=== PATIENT | female | born 1935 | race Caucasian/White ===

== ENCOUNTER → 2016-04-09 | Outpatient (CLI) | payer MEDICARE, OTHER | END | disposition home or self-care (01) | LOC: GMA 14:57 | PROVIDERS: ATTEND Nurse Practitioner Family | DX: N39.0 Urinary tract infection, site not specified (principal) ==

== ENCOUNTER → 2016-04-23 | Outpatient (CLI) | payer MEDICARE, OTHER | END | disposition home or self-care (01) | LOC: GMAM 10:47 | PROVIDERS: ATTEND Family Medicine | DX: M85.89 Other specified disorders of bone density and structure, multiple sites (principal); E03.9 Hypothyroidism, unspecified; E55.9 Vitamin D deficiency, unspecified; I10 Essential (primary) hypertension; E78.2 Mixed hyperlipidemia ==

== ENCOUNTER 2016-04-26 16:41 | Emergency (ER) | payer MEDICARE, OTHER ==
--- NOTE | 2016-04-26 19:57 | ED.PDOC ---
History of Present Illness - General Chief Complaint: Skin/Abrasion/Tear Stated Complaint: rash Time Seen by Provider: 04/26/16 19:53 Source: patient Exam Limitations: no limitations - History of Present Illness Initial Comments: Ms. Amrik Sewell 80 y/o female with histtory of dm 2 and OA stated that he had pneumonia immunization 4 days ago and after 2 days had pruritic rash right side of face and also skin rash non itching right side cheek.No nose or eye pain. Timing/Duration: other - 2 days ago Severity: moderate Location: face, extremities Improving Factors: nothing Worsening Factors: nothing Associated Symptoms: itching Allergies/Adverse Reactions: Allergies Codeine Allergy (Verified 04/26/16 18:40) Home Medications: Ambulatory Orders predniSONE [Prednisone] 10 mg PO DAILY #7 tab 04/26/16 Review of Systems - Review of Systems Constitutional: States: no symptoms reported EENTM: States: no symptoms reported Respiratory: States: no symptoms reported Cardiology: States: no symptoms reported Gastrointestinal/Abdominal: States: no symptoms reported Genitourinary: States: no symptoms reported Musculoskeletal: States: no symptoms reported Skin: States: see HPI Neurological: States: no symptoms reported Endocrine: States: no symptoms reported Hematologic/Lymphatic: States: no symptoms reported Past Medical History (General) - Patient Medical History Hx of COPD: Yes Hx Hypertension: Yes Surgical History: other - hysterectomy - Vaccination History Hx Influenza Vaccination: Yes Hx Pneumococcal Vaccination: Yes Immunizations Up to Date: Yes - zoster - Social History Hx Tobacco Use: Yes - Activities of Daily Living Patient Lives Alone: Yes - recently Grooming Ability: Independent Eating (Feeding) Ability: Independent Toileting Ability: Independent Family Medical History - Family History Mother Family History: Unknown Living Status: Hx Family Diabetes: Yes - parents Hx Family Cancer: Yes - AML-son Physical Exam - Physical Exam General Appearance: Alert, No apparent distress Eyes, Ears, Nose, Throat Exam: PERRL/EOMI, normal ENT inspection, TMs normal, other - Fluorescein dye uptake negative right eye Neck: non-tender, full range of motion, supple Cardiovascular/Chest: normal peripheral pulses, regular rate, rhythm, no edema, no gallop, no JVD, no murmur Respiratory: chest non-tender, lungs clear, normal breath sounds Gastrointestinal/Abdominal: normal bowel sounds, non tender, soft, no pulsatile mass Extremity: normal range of motion, non-tender, normal inspection Neurologic: no motor/sensory deficits, alert Skin Exam: warm/dry, normal color Skin Problem Location: face, lower extremities Skin Character: macules, other - with central clearing Lymphatic: no adenopathy Departure - Departure Clinical Impression: Skin rash, Blepharitis of eyelid of right eye Time of Disposition: 20:03 Disposition: Discharge to Home or Self Care Condition: Good Departure Forms: ED Discharge - Pt. Copy, Patient Portal Self Enrollment Prescriptions: predniSONE [Prednisone] 10 mg PO DAILY #7 tab Home Medications: Ambulatory Orders predniSONE [Prednisone] 10 mg PO DAILY #7 tab 04/26/16 Additional Instructions: FOLLOW UP WITH PRIMARY MD call for appointment KAMRYN;Take Benadryl 25 mg by mouth 3x a day for itching
[2016-04-26] MEDS ORDERED: DEXAMETHASONE INJ 4 MG/ML VIAL IM ONE (20:02)
[2016-04-26 20:25] VITALS: BP 172/87
[2016-04-26 20:27] VITALS: TEMP 97.2; O2SAT 99
== END 2016-04-26 20:27 | disposition home or self-care (01) ==
LOC: ER 16:41
DX: R21 Rash and other nonspecific skin eruption (principal); H01.003 Unspecified blepharitis right eye, unspecified eyelid; E11.9 Type 2 diabetes mellitus without complications; M19.90 Unspecified osteoarthritis, unspecified site; J44.9 Chronic obstructive pulmonary disease, unspecified; I10 Essential (primary) hypertension; Z88.6 Allergy status to analgesic agent

== ENCOUNTER 2016-05-20 22:58 | Emergency (ER) | payer MEDICARE, OTHER ==
[2016-05-20] MEDS ORDERED: SODIUM CHLORIDE 0.9% 1000ML 1,000 ML IVS ONE (23:20)
--- NOTE | 2016-05-20 23:24 | ED.PDOC ---
History of Present Illness - General Chief Complaint: Fever Stated Complaint: fever, cough, slurred speech, unsteady gait,alt MS Time Seen by Provider: 05/20/16 23:07 Source: patient, RN notes reviewed, Vital Signs reviewed, family Exam Limitations: no limitations - History of Present Illness Initial Comments: Patient and daughter report that at ~10pm patient started to get confused, had slurred speech and her walking was off balance. Daughter reports she was on the phone and just started talking about things that did not make since. She was talking like her was still alive and he passed several months ago. She has not been feeling well for a couple of days with a low fever at home. No similar episodes in past. No CARTER, lightheadedness, dizziness. Patient reports that now she is feeling pretty good. Daughter still feels like her walking is off. Timing/Duration: 1-3 hours Severity: mild Improving Factors: nothing Worsening Factors: nothing Associated Symptoms: fever/chills, malaise, weakness Allergies/Adverse Reactions: Allergies Codeine Allergy (Verified 05/20/16 23:15) Home Medications: Ambulatory Orders Aspirin [Aspirin EC Low Dose] 81 mg PO DAILY 05/20/16 Calcium 600 mg PO DAILY 05/20/16 Carvedilol [Coreg] 12.5 mg PO BID 05/20/16 Cholecalciferol [Vitamin D3] 5,000 unit PO WKLY 05/20/16 Citalopram Hydrobromide [CeleXA] 20 mg PO DAILY 05/20/16 Coenzyme Q10 (Ubidecarenone) [Co Q-10] 100 mg PO DAILY 05/20/16 Gabapentin [Neurontin] 100 mg PO DAILY 05/20/16 Levothyroxine Sodium [Synthroid] 112 mcg PO DAILY 05/20/16 Metformin HCl [Metformin HCl ER] 1,000 mg PO BEDTIME 05/20/16 Metformin HCl [Metformin HCl ER] 500 mg PO ACHS 05/20/16 Nifedipine [Procardia Xl] 60 mg PO DAILY 05/20/16 Omeprazole Magnesium 20.6 mg PO DAILY 05/20/16 Nitrofurantoin Monohydrate Mac [Macrobid] 100 mg PO BID #20 cap 05/21/16 Review of Systems - Review of Systems Constitutional: States: fever, malaise, weakness. Denies: diaphoresis EENTM: States: no symptoms reported Respiratory: States: no symptoms reported. Denies: short of breath Cardiology: States: no symptoms reported. Denies: chest pain Gastrointestinal/Abdominal: States: no symptoms reported. Denies: nausea, vomiting Musculoskeletal: States: no symptoms reported Skin: States: no symptoms reported Neurological: States: see HPI, weakness, other - slurred speech, altered mental status Past Medical History (General) - Patient Medical History Hx Seizures: No Hx Stroke: No Hx Dementia: No Hx Asthma: No Hx of COPD: Yes Hx Cardiac Disorders: No Hx Congestive Heart Failure: No Hx Pacemaker: No Hx Hypertension: Yes Hx Thyroid Disease: Yes Hx Diabetes: Yes Hx Gastroesophageal Reflux: No Hx Renal Disease: No Hx Cancer: No Hx of HIV: No Hx Hepatitis C: No Hx MRSA: No Surgical History: tonsillectomy, Hysterectomy, other - Vaccination History Hx Tetanus, Diphtheria Vaccination: Yes Hx Influenza Vaccination: Yes Hx Pneumococcal Vaccination: Yes Immunizations Up to Date: Yes - Social History Hx Tobacco Use: No Hx Chewing Tobacco Use: No Hx Alcohol Use: No Hx Substance Use: No Hx Substance Use Treatment: No Hx Depression: No Feels Threatened In Home Enviroment: No Feels Threatened In a Relationship: No Hx Physical Abuse: No Hx Emotional Abuse: No Hx Suspected Abuse: No Family Medical History - Family History Mother Family History: Unknown Living Status: Hx Family Diabetes: Yes - parents Hx Family Cancer: Yes - AML-son Physical Exam - Physical Exam General Appearance: Alert, Comfortable, No apparent distress, Well Developed, Well Groomed, Well Hydrated, Well Nourished Eye Exam: bilateral normal Ears, Nose, Throat: hearing grossly normal, normal ENT inspection, normal pharynx Neck: non-tender, full range of motion, supple, normal inspection Respiratory: chest non-tender, lungs clear, normal breath sounds, no respiratory distress, no accessory muscle use Cardiovascular/Chest: normal peripheral pulses, regular rate, rhythm, no edema, no gallop, no JVD, no murmur Peripheral Pulses: dorsalis pedis,right: 2+, dorsalis pedis,left: 2+, posterior tibialis,right: 2+, posterior tibialis,left: 2+ Gastrointestinal/Abdominal: normal bowel sounds, non tender, soft, no organomegaly, no pulsatile mass Extremity: normal range of motion, non-tender, normal inspection, no pedal edema 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 Will treat UTI Follow up with Neurology - Results/Orders Results/Orders: Laboratory Tests 05/20/16 05/20/16 23:35 23:50 WBC 6.8 RBC 4.52 Hgb 12.4 Hct 37.4 MCV 82.6 MCH 27.4 MCHC 33.2 RDW 14.9 H Plt Count 125 L MPV 7.1 L Absolute Neuts (auto) 4.60 Absolute Lymphs (auto) 1.10 Absolute Monos (auto) 0.80 Absolute Eos (auto) 0.10 Absolute Basos (auto) 0.10 Neutrophils % 68.5 Lymphocytes % 16.9 L Monocytes % 12.6 H Eosinophils % 1.1 Basophils % 0.9 Sodium 135 Potassium 3.9 Chloride 101 Carbon Dioxide 30 Anion Gap 7.9 L BUN 11 Creatinine 0.74 BUN/Creatinine Ratio 14.9 Random Glucose 114 H Serum Osmolality 270.4 L Calcium 9.2 Total Bilirubin 0.8 AST 19 ALT 12 Alkaline Phosphatase 49 Serum Total Protein 7.4 Albumin 3.8 Globulin 3.6 H Albumin/Globulin Ratio 1.1 Urine Color Yellow Urine Appearance Clear Urine pH 6.0 Ur Specific [place] 1.010 Urine Protein Negative Urine Glucose (UA) Negative Urine Ketones Negative Urine Blood Trace-intact H Urine Nitrite Negative Urine Bilirubin Negative Urine Urobilinogen 0.2 Ur Leukocyte Esterase Small H Urine RBC 0-1 Urine WBC 3-5 H Ur Epithelial Cells 0-1 Urine Bacteria 1+ - EKG/XRAY/CT CT Ordered: Yes CT Interpretation Call Back: Yes - No Occlusion, 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 aneurysm. 60% occlusion R. 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 Copy, Patient Portal Self Enrollment Instructions: DI for Urinary Tract Infection (UTI), Brain Aneurysm Diet: resume usual diet Activity: increase activity as tolerated Referrals: Timur Aguilar MD [Primary Care Provider] - 1-2 Weeks (Needs follow up for 4mm prox. 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) Prescriptions: Nitrofurantoin Monohydrate Mac [Macrobid] 100 mg PO BID #20 cap Home Medications: Ambulatory Orders Aspirin [Aspirin EC Low Dose] 81 mg PO DAILY 05/20/16 Calcium 600 mg PO DAILY 05/20/16 Carvedilol [Coreg] 12.5 mg PO BID 05/20/16 Cholecalciferol [Vitamin D3] 5,000 unit PO WKLY 05/20/16 Citalopram Hydrobromide [CeleXA] 20 mg PO DAILY 05/20/16 Coenzyme Q10 (Ubidecarenone) [Co Q-10] 100 mg PO DAILY 05/20/16 Gabapentin [Neurontin] 100 mg PO DAILY 05/20/16 Levothyroxine Sodium [Synthroid] 112 mcg PO DAILY 05/20/16 Metformin HCl [Metformin HCl ER] 1,000 mg PO BEDTIME 05/20/16 Metformin HCl [Metformin HCl ER] 500 mg PO ACHS 05/20/16 Nifedipine [Procardia Xl] 60 mg PO DAILY 05/20/16 Omeprazole Magnesium 20.6 mg PO DAILY 05/20/16 Nitrofurantoin Monohydrate Mac [Macrobid] 100 mg PO BID #20 cap 05/21/16
--- NOTE | 2016-05-21 01:03 | CT ---
PROCEDURE: CTA Head CLINICAL HISTORY: 80 years Female Slurred speech lower ext weakness COMPARISON: None. TECHNIQUE: Contiguous axial images obtained through the head and neck during the infusion of IV contrast. Reformatted images obtained. 3-D MIP reformatted images obtained. This exam was performed according to our department optimization program which includes automated exposure control, adjustment of the mA and/or kv according to patient size and/or use of iterative reconstruction technique. FINDINGS: The study is slightly limited by motion and streak artifact. The ventricles and sulci appear unremarkable. No definite areas of decreased density are identified. No definite acute hemorrhage. No mass lesions or enhancing lesions Mild mucosal thickening within bilateral inferior mastoid air cells. Marked atherosclerotic calcification in the right vertebral artery adjacent to the C1 level which slightly limits evaluation. The degree of stenosis is estimated at 60% using NASCET criteria. The distal left vertebral artery appears widely patent. Atherosclerotic calcifications within the cavernous portions of the bilateral internal carotid arteries without definite hemodynamically significant stenosis. Small left posterior communicating artery is visualized. The right A1 segment is markedly hypoplastic. No definite intracranial large vessel occlusion is visualized. There is an aneurysm arising from the proximal basilar artery which projects towards the right. The aneurysm measures approximately 0.4 cm in length by approximately 0.3 cm in width. 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 0.4 cm aneurysm arising from the proximal basilar artery. The findings were called to Dr. Case at approximately 12:59 AM. Electronically signed by: Eleuterio Solano MD 05/21/2016 1:01 AM CDT
[2016-05-21] MEDS ORDERED: NITROFURANTOIN MONOHYDRATE MAC 100 MG CAP PO ONE (01:04)
[2016-05-21 01:28] VITALS: BP 136/73
[2016-05-21 01:29] VITALS: TEMP 97.9; O2SAT 92
== END 2016-05-21 01:29 | disposition home or self-care (01) ==
LOC: ER 22:58
DX: N30.01 Acute cystitis with hematuria (principal); I72.5 Aneurysm of other precerebral arteries; J44.9 Chronic obstructive pulmonary disease, unspecified; I10 Essential (primary) hypertension; E07.9 Disorder of thyroid, unspecified; E11.9 Type 2 diabetes mellitus without complications; Z88.6 Allergy status to analgesic agent; Z79.899 Other long term (current) drug therapy; Z79.82 Long term (current) use of aspirin
CPT/HCPCS: 70496; 80053; 81001; 85025; 87086; 87088; 87186; J7030

== ENCOUNTER → 2016-05-26 | Outpatient (CLI) | payer MEDICARE, OTHER | END | disposition home or self-care (01) | LOC: GMAM 16:43 | PROVIDERS: ATTEND Family Medicine | DX: N39.0 Urinary tract infection, site not specified (principal) ==

== ENCOUNTER → 2016-07-08 | Outpatient (CLI) | payer MEDICARE, OTHER | END | disposition home or self-care (01) | LOC: GMAM 14:39 | PROVIDERS: ATTEND Family Medicine | DX: E55.9 Vitamin D deficiency, unspecified (principal) ==

== ENCOUNTER → 2016-10-07 | Outpatient (CLI) | payer MEDICARE, OTHER | END | disposition home or self-care (01) | LOC: GMAM 10:38 | PROVIDERS: ATTEND Family Medicine | DX: E03.9 Hypothyroidism, unspecified (principal); E55.9 Vitamin D deficiency, unspecified; D64.9 Anemia, unspecified; E53.8 Deficiency of other specified B group vitamins; R30.0 Dysuria ==

== ENCOUNTER → 2017-01-27 | Outpatient (CLI) | payer MEDICARE, OTHER | END | disposition home or self-care (01) | LOC: GMAM 11:16 | PROVIDERS: ATTEND Family Medicine | DX: E03.9 Hypothyroidism, unspecified (principal); E55.9 Vitamin D deficiency, unspecified; E53.8 Deficiency of other specified B group vitamins ==

== ENCOUNTER → 2017-05-11 | Outpatient (CLI) | payer MEDICARE, OTHER | LOC: GMAM 10:41 | PROVIDERS: ATTEND Family Medicine | DX: E03.9 Hypothyroidism, unspecified (principal); E55.9 Vitamin D deficiency, unspecified ==

== ENCOUNTER 2017-11-17 04:46 | Day surgery (SDC) | payer MEDICARE, OTHER ==
[2017-11-17] MEDS ORDERED: LACTATED RINGERS 1,000 ML ONE (06:50)
[2017-11-17] MEDS ORDERED: LACTATED RINGERS 1,000 ML BAG IV ONE (07:35)
[2017-11-17] MEDS ORDERED: PROPOFOL 200 MG/20 ML VIAL IV ONE (10:00)
[2017-11-17] MEDS ORDERED: LIDOCAINE 1% 10 ML VIAL INJ ONE (10:00)
--- NOTE | 2017-11-17 10:53 | OP ---
DATE OF PROCEDURE: 11/17/17 PREOPERATIVE DIAGNOSIS: 1. Iron deficiency anemia. 2. Dysphagia. 3. Abdominal pain. 4. Diarrhea. POSTOPERATIVE DIAGNOSIS: 1. Gastritis. 2. No esophageal stricture or other source of dysphagia seen. 3. Biopsies obtained for celiac sprue. 4. Miller diverticulosis. 5. Internal hemorrhoids. 6. Colonic polyps. PROCEDURE: 1. Esophagogastroduodenoscopy plus biopsy. 2. Colonoscopy plus biopsy plus polypectomy. SURGEON: Ash Alonso MD. COMPLICATIONS: None apparent. BLOOD LOSS: None. MEDICATIONS: Monitored anesthesia care. DESCRIPTION OF PROCEDURE: Informed consent was obtained prior to sedation. The preprocedure cardiopulmonary assessment was satisfactory. The patient was placed in the left lateral decubitus position and was sedated. The tip of the Olympus esophagogastroduodenoscope was inserted in the oropharynx and carefully advanced through the cricopharyngeus into the esophageal lumen. The esophagus was unremarkable. The patient complained of dysphagia, but there is no stricture or narrowing or other mechanical source of obstruction seen. The stomach was examined with direct and retroflexed views. The antrum, body, fundus, cardia and incisura were closely examined. The patient has some mild antral gastritis and biopsies were obtained. There were no ulcers in the stomach and no other significant mucosal pathology of the stomach. The duodenum was examined down to the third portion. Because fo the patient's iron deficiency anemia and diarrhea symptoms, biopsies were obtained in the second portion of duodenum for celiac sprue. The scope was then removed from the patient. The patient was rotated 180 degrees. A digital rectal exam reveals no rectal masses. The tip of the colonoscope was inserted in the rectum and guided over to the cecum. The cecum was identified by locating the ileocecal valve and appendiceal orifice. The colon was tortuous and there was a lot of diverticula , primarily in the sigmoid. There was also decreased mobility of the colon. This created some difficulty getting the scope on over to the cecum. We did have to apply some hand pressure, but we were able to get the scope on over to the cecum. The cecum was identified by locating the ileocecal valve and the appendiceal orifice. Prep was overall fair. There was some semisolid debris scattered around that I tried to irrigate and suction away to allow for good visualization. Tiny polyps could have been overlooked, but I think we could rule out colon cancer with the patient's prep. The mucosa of the cecum, ascending colon, hepatic flexure, transverse colon, splenic flexure, descending colon and sigmoid colon was closely examined. Direct and retroflexed views of the rectum were obtained. The patient had 2 polyps. There was a 3 mm polyp in the descending colon that was removed with a cold snare and recovered. There was an 8 mm sessile polyp in the distal sigmoid that was removed with a hot snare and recovered. The patient had miller diverticulosis without any active diverticulitis noted. She had internal hemorrhoids on retroflexed view in the rectum. I did take biopsies throughout the colon of normal appearing mucosa to rule out microscopic colitis. RECOMMENDATIONS: Followup pathology via telephone in a week. She does not need any further colon cancer screening in the future since she is 82 now. #[id number] cc: Timur Aguilar MD MTDD
[2017-11-17 11:17] VITALS: BP 124/68; TEMP 97.2; O2SAT 96
== END 2017-11-17 11:10 | disposition home or self-care (01) ==
LOC: AMB 04:46
PROVIDERS: ATTEND Internal Medicine Gastroenterology
DX: D50.9 Iron deficiency anemia, unspecified (principal); D12.4 Benign neoplasm of descending colon; D12.5 Benign neoplasm of sigmoid colon; K57.30 Diverticulosis of large intestine without perforation or abscess without bleeding; K64.8 Other hemorrhoids; K29.50 Unspecified chronic gastritis without bleeding; K58.0 Irritable bowel syndrome with diarrhea; I10 Essential (primary) hypertension; E11.9 Type 2 diabetes mellitus without complications; J44.9 Chronic obstructive pulmonary disease, unspecified; Z86.010 Personal history of colon polyps; Z87.891 Personal history of nicotine dependence; Z88.5 Allergy status to narcotic agent; Z79.84 Long term (current) use of oral hypoglycemic drugs; Z79.82 Long term (current) use of aspirin; Z79.899 Other long term (current) drug therapy
CPT/HCPCS: 00813; 36416; 43239; 45380; 45385; 82948; 88305; 88341; 88342; J3490; J7120

== ENCOUNTER → 2017-12-29 | Outpatient (CLI) | payer MEDICARE, OTHER | LOC: GMAM 12:37 | PROVIDERS: ATTEND Family Medicine | DX: E53.8 Deficiency of other specified B group vitamins (principal); E03.9 Hypothyroidism, unspecified; E55.9 Vitamin D deficiency, unspecified; E78.2 Mixed hyperlipidemia; E11.9 Type 2 diabetes mellitus without complications ==

== ENCOUNTER 2018-01-09 12:02 | Inpatient (IN) | payer MEDICARE, OTHER ==
--- NOTE | 2018-01-09 12:48 | ED.PDOC ---
History of Present Illness - General Chief Complaint: Respiratory Problem Stated Complaint: Congestion Time Seen by Provider: 01/09/18 12:46 Source: patient, family Exam Limitations: no limitations - History of Present Illness Comments: HAS BEEN SICK SINCE WEDNESDAY WITH A RUNNY NOSE AND SOB. SHE HAS BEEN USING HOME OXYGEN MORE FREQUENTLY THAN NOT. DENIES ANY FEVER. Timing/Duration: other - HAS BEEN SICK SINCE WEDNESDAY Cough Quality/Degree: moderate Possible Cause: allergen exposure, illness exposure Improving Factors: nothing Worsening Factors: nothing Associated Symptoms: denies symptoms, chest pain/soreness, cough, nasal congestion Respiratory Risk Factors: pollen Allergies/Adverse Reactions: Allergies Sulfamethoxazole w/Trimethoprim [From Bactrim] Allergy (Verified 01/09/18 12:49) Unknown Codeine Adverse Reaction (Verified 01/09/18 12:17) Other Causes a feeling of "separation from her body" Home Medications: Ambulatory Orders Aspirin [Aspirin EC Low Dose] 81 mg PO DAILY 05/20/16 Carvedilol [Coreg] 12.5 mg PO BID 05/20/16 Citalopram Hydrobromide [CeleXA] 40 mg PO DAILY 05/20/16 Gabapentin [Neurontin] 100 mg PO BEDTIME 05/20/16 Levothyroxine Sodium [Synthroid] 112 mcg PO DAILY 05/20/16 Metformin HCl [Metformin HCl ER] 1,000 mg PO BEDTIME 05/20/16 Metformin HCl [Metformin HCl ER] 500 mg PO DAILY 05/20/16 Nifedipine [Procardia Xl] 60 mg PO DAILY 05/20/16 Omeprazole Magnesium 20 mg PO DAILY 05/20/16 Calcium Carbonate-Vitamin D [Calcium 500+D] 1 tab PO BID 11/12/17 Cephalexin 500 mg PO BEDTIME 11/12/17 Clonidine HCl 0.1 mg PO Q2H PRN 11/12/17 Furosemide [Lasix] 20 mg PO DAILY PRN 11/12/17 HYDROcodone 5MG/APAP 325MG [[place] 5/325] 1 tab PO Q6HRS PRN 11/12/17 Mirabegron [Myrbetriq] 25 mg PO BEDTIME 11/12/17 Phenazopyridine HCl & Cranberr [Azo Urinary Tract Health 95 & 250-30 mg] 1 tab PO BID 11/12/17 diphenhydrAMINE HCL [Benadryl] 25 mg PO BEDTIME PRN 11/12/17 Coenzyme Q10 (Ubidecarenone) [Co Q-10] 100 mg PO DAILY 01/09/18 Cyanocobalamin Inj [Vitamin B-12 Inj] 1 ml IM MONTHLY 01/09/18 Potassium Chloride [Micro-K] 8 meq PO DAILY PRN 01/09/18 Tramadol HCl 50 mg PO Q6H PRN 01/09/18 Umeclidinium-Vilanterol [Anoro Ellipta 62.5-25 Mcg/INH] 1 puff INH DAILY Review of Systems - Review of Systems Constitutional: States: malaise EENTM: States: nose congestion Respiratory: States: cough, short of breath Cardiology: States: no symptoms reported Gastrointestinal/Abdominal: States: no symptoms reported Genitourinary: States: no symptoms reported Musculoskeletal: States: no symptoms reported Skin: States: no symptoms reported Neurological: States: no symptoms reported Endocrine: States: no symptoms reported Hematologic/Lymphatic: States: no symptoms reported Past Medical History (General) - Patient Medical History Hx Seizures: No Hx Stroke: No Hx Dementia: No Hx Asthma: No Hx of COPD: Yes Hx Cardiac Disorders: No Hx Congestive Heart Failure: No Hx Pacemaker: No Hx Hypertension: Yes Hx Thyroid Disease: Yes Hx Diabetes: Yes Hx Gastroesophageal Reflux: Yes Hx Renal Disease: No Hx Cancer: No Hx of HIV: No Hx Hepatitis C: No Hx MRSA: No - Vaccination History Hx Tetanus, Diphtheria Vaccination: Yes Hx Influenza Vaccination: Yes - 2017 Hx Pneumococcal Vaccination: Yes - 2018 - Social History Hx Tobacco Use: Yes - Quit 2002 Hx Chewing Tobacco Use: No Hx Alcohol Use: No Hx Substance Use: No Hx Substance Use Treatment: No Hx Depression: No Hx Physical Abuse: No Hx Emotional Abuse: No Hx Suspected Abuse: No Family Medical History - Family History Mother Family History: Unknown Living Status: Hx Family Diabetes: Yes - parents Hx Family Cancer: Yes - AML-son Physical Exam - Physical Exam General Appearance: Alert, Well Developed, Well Hydrated Eye Exam: bilateral normal ENT Exam: normal ENT inspection, hearing grossly normal, nasal congestion, nasal drainage Neck: non-tender, full range of motion Respiratory: normal breath sounds, no accessory muscle use, rhonchi Cardiovascular/Chest: normal peripheral pulses, regular rate, rhythm, no edema, no gallop, no JVD, no murmur Gastrointestinal/Abdominal: normal bowel sounds, non tender, soft, no organomegaly Extremity: normal range of motion, non-tender, normal inspection Neurologic: no motor/sensory deficits, oriented x 3 Skin Exam: normal color Lymphatic: no adenopathy Progress - Progress Progress: 01/09/18 14:08 01/09/18 13:54 [email or web address] SODIUM [Rocephin] 1 gm Sodium Chl 0.9% 50Ml Min-Bag+ [NS 50ml MINI -BAG+] 50 ml IVPB ONCE 01/09/18 14:06 SVN/Updraft Therapy .ONCE 01/10/18 09:00 Updrafts Daily Laboratory Results WBC 4.2 K/mm3 (4.8-10.8) L 01/09/18 12:46 RBC 4.48 M/mm3 (4.20-5.40) 01/09/18 12:46 Hgb 11.8 gm/dL (12.0-16.0) L 01/09/18 12:46 Hct 37.2 % (36.0-47.0) 01/09/18 12:46 MCV 82.9 fl (81.0-99.0) 01/09/18 12:46 MCH 26.3 pg (27.0-31.0) L 01/09/18 12:46 MCHC 31.6 g/dL (33.0-37.0) L 01/09/18 12:46 RDW 20.6 % (11.5-14.5) H 01/09/18 12:46 Plt Count 165 K/mm3 (130-400) 01/09/18 12:46 MPV 6.9 fl (7.40-10.4) L 01/09/18 12:46 Absolute Neuts (auto) 2.70 K/uL (1.8-6.8) 01/09/18 12:46 Absolute Lymphs (auto) 0.80 K/uL (1.0-3.4) L 01/09/18 12:46 Absolute Monos (auto) 0.60 K/uL (0.2-0.8) 01/09/18 12:46 Absolute Eos (auto) 0.10 K/uL (0.0-0.4) 01/09/18 12:46 Absolute Basos (auto) 0.00 K/uL (0.0-0.1) 01/09/18 12:46 Neutrophils % 64.3 % (42.0-78.0) 01/09/18 12:46 Lymphocytes % 18.4 % (20.0-50.0) L 01/09/18 12:46 Monocytes % 13.9 % (2.0-9.0) H 01/09/18 12:46 Eosinophils % 2.6 % (1.0-5.0) 01/09/18 12:46 Basophils % 0.8 % (0.0-2.0) 01/09/18 12:46 pCO2 52 mmHg (32-45) H 01/09/18 12:47 pO2 66 mmHg (83-108) L 01/09/18 12:47 HCO3 29.4 mmol/L 01/09/18 12:47 ABG pH 7.370 (7.35-7.45) 01/09/18 12:47 ABG O2 Saturation 94.1 % (95.0-99.0) L 01/09/18 12:47 ABG Base Excess 3.9 mmol/L 01/09/18 12:47 ABG Deoxyhemoglobin 5.8 % (0.0-5.0) H 01/09/18 12:47 Oxyhemoglobin % 92.0 % (94.0-98.0) L 01/09/18 12:47 Carboxyhemoglobin % 1.0 % (0.5-1.5) 01/09/18 12:47 Methemoglobin % Sat 1.1 % (0.0-1.5) 01/09/18 12:47 Calc Total Hemoglobin 10.9 g/dL (12.0-16.0) L 01/09/18 12:47 Sodium 138 mmol/L (135-145) 01/09/18 13:02 Potassium 4.3 mmol/L (3.6-5.0) 01/09/18 13:02 Chloride 101 mmol/L (101-111) 01/09/18 13:02 Carbon Dioxide 32 mmol/L (21-31) H 01/09/18 13:02 Anion Gap 9.3 (12-18) L 01/09/18 13:02 BUN 15 mg/dL (7-18) 01/09/18 13:02 Creatinine 1.10 mg/dL (0.6-1.3) 01/09/18 13:02 BUN/Creatinine Ratio 13.6 (10-20) 01/09/18 13:02 Random Glucose 88 mg/dL (70-105) 01/09/18 13:02 Serum Osmolality 275.9 mOsm/L (275-295) 01/09/18 13:02 Lactic Acid 1.6 mmol/L (0.5-2.2) 01/09/18 13:02 Calcium 8.9 mg/dL (8.4-10.2) 01/09/18 13:02 Total Bilirubin 0.4 mg/dL (0.2-1.0) 01/09/18 13:02 AST 16 IU/L (10-42) 01/09/18 13:02 ALT 11 IU/L (10-60) 01/09/18 13:02 Alkaline Phosphatase 51 IU/L (42-121) 01/09/18 13:02 B-Natriuretic Peptide 65.0 pg/ml (0-100) 01/09/18 13:02 Serum Total Protein 7.1 gm/dL (6.4-8.2) 01/09/18 13:02 Albumin 3.9 g/dl (3.2-5.5) 01/09/18 13:02 Globulin 3.2 gm/dL (2.3-3.5) 01/09/18 13:02 Albumin/Globulin Ratio 1.2 (1.1-1.9) 01/09/18 13:02 01/09/18 14:24 CASE DISCUSSED WITH KYLAH BENITEZ-WILL ADMIT - Results/Orders Results/Orders: Abnormal Lab Results 01/09/18 01/09/18 01/09/18 12:46 12:47 13:02 WBC 4.2 L Hgb 11.8 L MCH 26.3 L MCHC 31.6 L RDW 20.6 H MPV 6.9 L Absolute Lymphs (auto) 0.80 L Lymphocytes % 18.4 L Monocytes % 13.9 H pCO2 52 H pO2 66 L ABG O2 Saturation 94.1 L ABG Deoxyhemoglobin 5.8 H Oxyhemoglobin % 92.0 L Calc Total Hemoglobin 10.9 L Carbon Dioxide 32 H Anion Gap 9.3 L Departure - Departure Clinical Impression: COPD with exacerbation Time of Disposition: 14:26 Disposition: Admit Patient Condition: Fair Departure Forms: ED Discharge - Pt. Copy, Patient Portal Self Enrollment Referrals: Timur Aguilar MD [Primary Care Provider] - 1-2 Weeks Home Medications: Ambulatory Orders Aspirin [Aspirin EC Low Dose] 81 mg PO DAILY 05/20/16 Carvedilol [Coreg] 12.5 mg PO BID 05/20/16 Citalopram Hydrobromide [CeleXA] 40 mg PO DAILY 05/20/16 Gabapentin [Neurontin] 100 mg PO BEDTIME 05/20/16 Levothyroxine Sodium [Synthroid] 112 mcg PO DAILY 05/20/16 Metformin HCl [Metformin HCl ER] 1,000 mg PO BEDTIME 05/20/16 Metformin HCl [Metformin HCl ER] 500 mg PO DAILY 05/20/16 Nifedipine [Procardia Xl] 60 mg PO DAILY 05/20/16 Omeprazole Magnesium 20 mg PO DAILY 05/20/16 Calcium Carbonate-Vitamin D [Calcium 500+D] 1 tab PO BID 11/12/17 Cephalexin 500 mg PO BEDTIME 11/12/17 Clonidine HCl 0.1 mg PO Q2H PRN 11/12/17 Furosemide [Lasix] 20 mg PO DAILY PRN 11/12/17 HYDROcodone 5MG/APAP 325MG [[place] 5/325] 1 tab PO Q6HRS PRN 11/12/17 Mirabegron [Myrbetriq] 25 mg PO BEDTIME 11/12/17 Phenazopyridine HCl & Cranberr [Azo Urinary Tract Health 95 & 250-30 mg] 1 tab PO BID 11/12/17 diphenhydrAMINE HCL [Benadryl] 25 mg PO BEDTIME PRN 11/12/17 Coenzyme Q10 (Ubidecarenone) [Co Q-10] 100 mg PO DAILY 01/09/18 Cyanocobalamin Inj [Vitamin B-12 Inj] 1 ml IM MONTHLY 01/09/18 Potassium Chloride [Micro-K] 8 meq PO DAILY PRN 01/09/18 Tramadol HCl 50 mg PO Q6H PRN 01/09/18 Umeclidinium-Vilanterol [Anoro Ellipta 62.5-25 Mcg/INH] 1 puff INH DAILY Decision To Admit - Decistion To Admit Decision to Admit Date: 01/09/18 Decision to Admit Time: 14:25
--- NOTE | 2018-01-09 13:39 | RAD ---
EXAM DESCRIPTION: Chest,1 View CLINICAL HISTORY: 82 years Female, SOB COMPARISON: 2 view chest dated July 12, 2008. FINDINGS: Heart size appears slightly prominent, although accentuated by technique. There is calcification in the aortic arch. The lungs appear grossly clear except for faintly increased density in the right costophrenic angle, which is probably artifactual due to overlying soft tissue. There is minimal exclusion of the extreme left apex. No obvious pneumothorax is seen on this upright portable film. Relative elevation of the left hemidiaphragm is unchanged. Note is again made of multiple old rib fractures on the left, with associated lateral pleural thickening. Considering technical differences, there does not appear to be a significant interval change in cardiopulmonary status compared to the previous study. IMPRESSION: No radiographic evidence of acute cardiopulmonary disease. Electronically signed by: Niels Grewal MD 01/09/2018 1:37 PM [facility]
[2018-01-09] MEDS ORDERED: cefTRIAXone SODIUM 1 GM in SODIUM CHL 0.9% 50ML MIN-BAG+ 50 ML IVPB ONE (13:54)
[2018-01-09] MEDS ORDERED: IPRATROPIUM/ALBUTEROL 3 ML VIAL NEB ONE (13:55)
[2018-01-09] MEDS ORDERED: SODIUM CHL 0.9% 50ML MIN-BAG+ 50 ML IVPB ONE (14:37)
[2018-01-09] MEDS ORDERED: cefTRIAXone SODIUM 1 GM VIAL ONE (14:37)
--- NOTE | 2018-01-09 15:08 | HP ---
SUPERVISING PHYSICIAN: Timur Aguilar M.D. CHIEF COMPLAINT: Congestion and shortness of breath. HISTORY OF PRESENT ILLNESS: Ms. Sewell is an 82 year-old female patient that presented to the Emergency Room today. She noted that she had been having upper respiratory symptoms with a runny nose and shortness of breath since this past . She does utilize oxygen at home p.r.n. but has been utilizing it more frequently due to the shortness of breath. She denied any fever or chills and any recent exposures to family members who were ill with similar symptoms. Vital signs in the E. R. showed that she was satting 92% on room air but dropped to 84% with just 20 feet of ambulation requiring well over 5 minutes for recovery dropping as low as 77%, and utilizing the nasal cannula recovered to 90% after 5 minutes and administration of DuoNeb treatment. Laboratory studies showed white count of 4,200 with no left shift currently but blood gas analysis showed pO2 of 66 with pCO2 of 52 satting 94% on 2 liters nasal cannula. Chemistries showed carbon dioxide was elevated at 32, other electrolytes were within normal limits. Magnesium was low at 1.7, lactic acid 1.6. Liver functions were all within normal limits. BNP was normal at 65. Urinalysis was within normal limits except for trace of leukocyte esterase. Influenza swab A and B were both negative. Chest x-ray in the Emergency Room prior to admission per radiology interpretation showed no radiographic evidence of acute cardiopulmonary disease. Given the significance of hypoxia and desaturation on room air requiring an extended amount of time as well as breathing treatments to recovery, the patient is now going to be admitted to the Medical/Surgical floor for further treatment and evaluation of acute exacerbation of COPD with concerns for developing early community acquired pneumonia. PAST MEDICAL HISTORY: 1. Hypertension with mild left ventricular dysfunction with an ejection fraction of 70% on last echocardiogram noted to be on August 2015. 2. Basilar artery aneurysm medically managed. 3. Chronic obstructive pulmonary disease. 4. Gastroesophageal reflux disease. 5. Irritable bowel syndrome with spastic colon. 6. Osteoarthritis. 7. Osteopenia. 8. Type 2 diabetes mellitus. 9. Hypothyroidism. PAST SURGICAL HISTORY: 1. Tonsillectomy in 1962. 2. Carotid endarterectomy in 2006. 3. Cataract removal bilaterally in 2016. 4. Partial hysterectomy. 5. Thoracostomy tube in 2003 after multiple rib fractures. 6. Gavin replacement on L4 and L5 with 2 [place] [address] Rosen. HOME MEDICATIONS: 1. Nystatin powder 15 grams topical daily 3 times a day. 2. Tramadol 50 mg every 6 hours as needed. 3. Co Enzyme Q-10, 100 mg daily. 4. Anoro Ellipta 62.5/25 mcg 1 puff inhaled daily. 5. Calcium 500 plus D 1 tablet b.i.d. 6. Azo urinary tract health 95, 1 tablet b.i.d. 7. Gabapentin 100 mg at bedtime. 8. Myrbetriq 25 mg at bedtime. 9. [place] 5/325 one tablet every 6 hours as needed for pain. 10. Aspirin 81 mg daily. 11. Cephalexin 500 mg at bedtime. 12. Benadryl 25 mg at bedtime. 13. Omeprazole 20 mg daily. 14. Celexa 40 mg daily. 15. Potassium chloride 8 mEq daily p.r.n. 16. Nifedipine 60 mg daily. 17. Coreg 12.5 mg b.i.d. 18. Lasix 20 mg daily p.r.n. 19. Vitamin B12 injection 1 mL IM monthly. 20. Clonidine 0.1 mg every 2 hours p.r.n. 21. Metformin extended release 500 mg daily. 22. Metformin extended release 1,000 at bedtime. 23. Synthroid 112 mcg daily. ALLERGIES: CODEINE AND BACTRIM. FAMILY HISTORY: Father's medical history is unknown. He is . Mother at age 84 with hypertension. She has 1 son who has leukemia AML diagnosed in 2015. She has 2 daughters, both healthy. 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 Currently lives in [place]. She is . She has 3 children. She has a past history of cigarette smoking but quit in 2005. She drinks alcohol infrequently, typically white wine and does not use any illicit drugs. REVIEW OF SYSTEMS: CONSTITUTIONAL: Denies any unintentional weight loss. Positive for malaise. HEENT: Positive for nasal congestion. Negative for sore throat, ear aches. RESPIRATORY: Positive for shortness of breath, cough. Negative for any wheezing. CARDIOVASCULAR: Denies any chest pain, syncopal episodes, palpitations. GASTROINTESTINAL: Denies any abdominal pains, diarrhea, constipation. Does have a positive history of irritable bowel syndrome with spastic colon. No changes. GENITOURINARY: Denies any dysuria, hematuria, polyuria or other urinary symptoms. NEUROLOGIC: Denies any seizures, ataxia or other neurological deficits. PHYSICAL EXAMINATION: VITAL SIGNS: Temperature 97.2, pulse 63, blood pressure 133/70, respirations 16 , satting 96% on nasal cannula at rest on 2 liters, satting in the low 80s on room air with ambulation dropping into the low 70s, recovering to the mid 90s with breathing treatments. Admission weight 84.7 kg. GENERAL: The patient appears to be in no acute distress. She is well nourished and well hydrated. HEENT: Tympanic membranes are clear bilaterally. Oropharynx is pink and moist without any lesions. NECK: Supple, non-tender. Full range of motion. CHEST: Lung sounds show some mild rhonchi throughout, diminished towards the bases bilaterally but no wheezing or rales. CARDIOVASCULAR: Regular rate and rhythm without appreciable murmurs, gallops, or rubs. ABDOMEN: Obese but soft, non-tender. Positive bowel sounds. EXTREMITIES: Without any clubbing, cyanosis or edema. NEUROLOGIC: She is alert and oriented times three. Cranial nerves II-XII are grossly intact. SKIN: [place], warm and dry. LYMPHATICS: No adenopathy noted. LABORATORY STUDIES: White count 4,200, hemoglobin 11.8, hematocrit 37.2, platelet count 165,000. Differential showed to be without a left shift on admission. ABGs on 2 liters nasal cannula showed a pH of 7.37 with pCO2 of 52, pO2 of 66, bicarb 29 and saturation 94.1%. Chemistries showed normal electrolytes, carbon dioxide was elevated at 32 with BUN 15, creatinine 1.10, glucose 88, lactic acid 1.6, magnesium 1.7. Liver functions all showed to be within normal limits. Urinalysis just showed a trace of blood, otherwise within normal limits. MICROBIOLOGY: Influenza A and B swabs were both negative. RADIOLOGY: Chest x-ray per radiology interpretation of single view chest showed no radiographic evidence of acute cardiopulmonary disease. ASSESSMENT: 1. Acute exacerbation of chronic obstructive pulmonary disease with hypoxemia as noted on arterial blood gas. 2. History of hypertension. 3. Gastroesophageal reflux disease. 4. History of irritable bowel syndrome. 5. History of osteoarthritis. 6. History of osteopenia. 7. Type 2 diabetes mellitus on oral therapy. 8. Hypothyroidism on supplementation. 9. Electrolyte imbalance to include hypomagnesemia requiring parenteral replacement. PLAN: The patient is going to be admitted to the Medical/Surgical floor for ongoing treatment and evaluation of exacerbation of chronic obstructive pulmonary disease with concerns for possible early pneumonia. She will be on aggressive pulmonary hygiene with updraft treatments as needed. Will start on antibiotics to include Rocephin and azithromycin. She will be on DVT prophylaxis per protocol. She will be on sliding scale insulin protocol. Will anticipate her length of stay to be 1 to 2 days. Given her shortness of breath and COPD, will start her on some steroids with slow taper to p.o. prednisone as able. Until she can transition to outpatient management, will continue to monitor and treat as needed. #[id number] [facility]
[2018-01-09] MEDS ORDERED: ALBUTEROL SULFATE 2.5 MG/3 ML VIAL NEB PRN (15:50)
[2018-01-09] MEDS ORDERED: ACETAMINOPHEN 325 MG TAB PO PRN (15:50)
[2018-01-09] MEDS ORDERED: methylPREDNISolone SODIUM SUC 125 MG/2 ML VIAL IV ONE (15:50)
[2018-01-09] MEDS ORDERED: DEXTROSE 50% 25 GM/50 ML SYG IV PRN (15:53)
[2018-01-09] MEDS ORDERED: GLUCAGON INJ 1 MG VIAL SUBCU PRN (15:53)
[2018-01-09] MEDS ORDERED: IV SET AND CAP CHANGE INJ INJ SCH (16:00)
[2018-01-09] MEDS: SODIUM CHLORIDE 0.9% (FLUSH) 10 ML SYG IV PRN ×3 (16:21→23:53)
[2018-01-09] MEDS: AZITHROMYCIN 250 MG TAB PO SCH (16:22)
[2018-01-09] MEDS: INSULIN LISPRO 100 UNITS/ML PEN SUBCU SCH ×2 (17:08→21:17)
[2018-01-09] MEDS ORDERED: MAGNESIUM SULFATE PREMIX 2GM 2 GM in PREMIX BAG 1 BAG IVPB ONE (17:24)
[2018-01-09] MEDS ORDERED: HYDROcodone 5MG/APAP 325MG 1 EA TAB PO PRN (17:28)
[2018-01-09] MEDS ORDERED: traMADol HCL 50 MG TAB PO PRN (17:28)
[2018-01-09] MEDS: IPRATROPIUM/ALBUTEROL 3 ML VIAL NEB SCH ×2 (17:52→19:56)
[2018-01-09] MEDS ORDERED: MAGNESIUM SULFATE PREMIX 2GM 50 ML IVPB ONE (17:52)
[2018-01-09] MEDS: CARVEDILOL 12.5 MG TAB PO SCH (20:53)
[2018-01-09] MEDS: GABAPENTIN 100 MG CAP PO SCH (20:53)
[2018-01-09] MEDS: ENOXAPARIN SODIUM 40 MG/0.4 ML SYG SUBCU SCH (20:54)
[2018-01-09] MEDS: metFORMIN XR 500 MG TAB.ER.24 PO SCH (20:54)
[2018-01-09] MEDS: CRANBERRY PO SCH (21:24)
[2018-01-09] MEDS: NON-FORMULARY MEDICATION 1 EA MIS (Mirabegron [Myrbetriq] 25 MG) PO SCH (21:24)
[2018-01-09] MEDS: PHENAZOPYRIDINE HCL PO SCH (21:24)
[2018-01-09] MEDS: [UNRECOGNIZED DRUG - OTHER] PO SCH (21:24)
[2018-01-09] MEDS: methylPREDNISolone SODIUM SUC 40 MG/ML VIAL IV SCH (23:53)
[2018-01-10] MEDS: SODIUM CHLORIDE 0.9% (FLUSH) 10 ML SYG IV PRN ×2 (06:04→20:45)
[2018-01-10] MEDS: PANTOPRAZOLE SODIUM IV 40 MG VIAL IV SCH (06:05)
--- NOTE | 2018-01-10 07:13 | RAD ---
Procedure: XR CHEST 2 VIEWS Exam Date: 01/10/2018 Ordering Provider: Lanre Tyler NP Clinical Indication: Pneumonia Comparison: 01/09/2018 Findings: Borderline cardiomegaly. Aortic calcification. No focal lung consolidation. Bibasilar subsegmental atelectasis. Elevation of the left hemidiaphragm. No pleural effusion. No pneumothorax. No acute osseous abnormality. Remote left-sided rib fractures. Impression: 1. No acute abnormality in the chest. Electronically signed by: Dduley Aquino MD 01/10/2018 7:12 AM [facility]
[2018-01-10] MEDS: INSULIN LISPRO 100 UNITS/ML PEN SUBCU SCH ×4 (07:57→21:12)
[2018-01-10] MEDS: IPRATROPIUM/ALBUTEROL 3 ML VIAL NEB SCH ×4 (08:22→20:42)
[2018-01-10] MEDS ORDERED: SODIUM CHLORIDE 0.9% 50ML 50 ML ONE (08:23)
[2018-01-10] MEDS ORDERED: cefTRIAXone SODIUM 1 GM VIAL ONE (08:23)
[2018-01-10] MEDS: NYSTATIN POWDER 15GM BTTL TOP SCH ×4 (09:16→20:45)
[2018-01-10] MEDS: CALCIUM CARBONATE-VITAMIN D 500 MG TAB PO SCH ×3 (09:17→20:46)
[2018-01-10] MEDS ORDERED: predniSONE 20 MG TAB PO SCH (09:30)
[2018-01-10] MEDS: cefTRIAXone SODIUM 1 GM in SODIUM CHL 0.9% 50ML MIN-BAG+ 50 ML IVPB SCH (09:46)
[2018-01-10] MEDS: CITALOPRAM HBR 20 MG TAB PO SCH (09:47)
[2018-01-10] MEDS: metFORMIN XR 500 MG TAB.ER.24 PO SCH ×2 (09:47→20:46)
[2018-01-10] MEDS: LEVOTHYROXINE SODIUM 0.112 MG TAB PO SCH (09:47)
[2018-01-10] MEDS: ASPIRIN (ENTERIC COATED) 81 MG TAB PO SCH (09:48)
[2018-01-10] MEDS: CARVEDILOL 12.5 MG TAB PO SCH ×2 (09:48→20:46)
[2018-01-10] MEDS: methylPREDNISolone SODIUM SUC 40 MG/ML VIAL IV SCH (09:49)
[2018-01-10] MEDS: diphenhydrAMINE HCL 25 MG CAP PO PRN ×2 (10:22→16:31)
[2018-01-10] MEDS: FLUTICASONE PROP 0.05% NASAL 16 GM BTTL BNAS SCH ×2 (10:22→20:45)
[2018-01-10] MEDS: PHENAZOPYRIDINE HCL PO SCH ×2 (10:29→20:47)
[2018-01-10] MEDS: CRANBERRY PO SCH ×2 (10:29→20:47)
[2018-01-10] MEDS: NON-FORMULARY MEDICATION 1 EA MIS (Umeclidinium-Vilanterol [Anoro Ellipta 62.5-25 Mcg/Inh] INH SCH (10:29)
[2018-01-10] MEDS: [UNRECOGNIZED DRUG - OTHER] PO SCH ×2 (10:29→20:47)
--- NOTE | 2018-01-10 10:41 | PN ---
SUPERVISING PHYSICIAN: Riley Rosenthal MD DATE: 01/10/18 SUBJECTIVE: The patient is sitting on the bed, her daughter is at the bedside. Her breathing is much improved since yesterday but now she feels like she has some sinus problems. She has some postnasal drip and feels like her allergies are bothering h er. Otherwise, she denies chest pain, nausea, vomiting, diarrhea or constipation. OBJECTIVE: VITAL SIGNS: She is afebrile. Heart rate 81, blood pressure 156/75, respiratory rate 18. 02 saturation has been as low as 89% and now is 96% on 1.5 liters per minute. RESPIRATORY: Somewhat diminished at the bases but otherwise clear to auscultation. CARDIAC: Regular rate and rhythm. ABDOMEN: Soft, nondistended, non-tender. Bowel sounds are positive. EXTREMITIES: No cyanosis, clubbing, or edema. NEURO: She is awake, alert, and oriented x3. LABORATORY: WBC 5.9 with hemoglobin of 13.1, hematocrit 41.2. She has a left shift on differential. Blood sugars have ranged between 94 and 304. Presently , her blood sugar is 164. Electrolytes are basically within normal limits. Chest x-ray shows no acute abnormality in the chest. All other labs and films have been reviewed via the EMR. ASSESSMENT: 1. Acute exacerbation of chronic obstructive pulmonary disease with hypoxemia as noted on arterial blood gas. 2. History of hypertension. 3. Gastroesophageal reflux disease. 4. Acute sinusitis, most likely allergy related. 5. History of irritable bowel syndrome. 6. History of osteoarthritis. 7. History of osteopenia. 8. Type 2 diabetes mellitus on oral therapy. 8. Hypothyroidism on supplementation. 10. Electrolyte imbalance that has now improved. PLAN: We will continue present supportive care. I rechecked her lab in the morning and ordered physical therapy to make sure she is safe for discharge. She does not have home health as she is usually independent in her activities of daily living. She also has oxygen at home. Hopefully, she can be discharged tomorrow or the next day. I have also ordered some Benadryl for her allergies as well as some Flonase and we will continue to monitor closely and follow as needed. Dr. Rosenthal is the collaborating physician available for consultation. [id number]
[2018-01-10] MEDS: AZITHROMYCIN 250 MG TAB PO SCH (15:21)
[2018-01-10] MEDS: ENOXAPARIN SODIUM 40 MG/0.4 ML SYG SUBCU SCH (20:45)
[2018-01-10] MEDS: GABAPENTIN 100 MG CAP PO SCH (20:46)
[2018-01-10] MEDS: NON-FORMULARY MEDICATION 1 EA MIS (Mirabegron [Myrbetriq] 25 MG) PO SCH (20:47)
[2018-01-10] MEDS ORDERED: methylPREDNISolone SODIUM SUC 40 MG/ML VIAL IV ONE (21:00)
[2018-01-11] MEDS: SODIUM CHLORIDE 0.9% (FLUSH) 10 ML SYG IV PRN (06:06)
[2018-01-11] MEDS: PANTOPRAZOLE SODIUM IV 40 MG VIAL IV SCH (06:06)
[2018-01-11] MEDS: INSULIN LISPRO 100 UNITS/ML PEN SUBCU SCH ×2 (07:06→13:02)
[2018-01-11] MEDS ORDERED: SODIUM CHL 0.9% 50ML MIN-BAG+ 50 ML IVPB ONE (07:41)
[2018-01-11] MEDS ORDERED: cefTRIAXone SODIUM 1 GM VIAL ONE (07:42)
[2018-01-11] MEDS: IPRATROPIUM/ALBUTEROL 3 ML VIAL NEB SCH ×2 (08:13→13:00)
[2018-01-11] MEDS: cefTRIAXone SODIUM 1 GM in SODIUM CHL 0.9% 50ML MIN-BAG+ 50 ML IVPB SCH (08:37)
[2018-01-11] MEDS: diphenhydrAMINE HCL 25 MG CAP PO PRN (08:38)
[2018-01-11] MEDS: metFORMIN XR 500 MG TAB.ER.24 PO SCH (08:38)
[2018-01-11] MEDS: CITALOPRAM HBR 20 MG TAB PO SCH (08:39)
[2018-01-11] MEDS: ASPIRIN (ENTERIC COATED) 81 MG TAB PO SCH (08:39)
[2018-01-11] MEDS: CALCIUM CARBONATE-VITAMIN D 500 MG TAB PO SCH (08:39)
[2018-01-11] MEDS: CARVEDILOL 12.5 MG TAB PO SCH (08:40)
[2018-01-11] MEDS: LEVOTHYROXINE SODIUM 0.112 MG TAB PO SCH (08:40)
[2018-01-11] MEDS: NYSTATIN POWDER 15GM BTTL TOP SCH (08:40)
[2018-01-11] MEDS: FLUTICASONE PROP 0.05% NASAL 16 GM BTTL BNAS SCH (08:40)
[2018-01-11] MEDS: NON-FORMULARY MEDICATION 1 EA MIS (Umeclidinium-Vilanterol [Anoro Ellipta 62.5-25 Mcg/Inh] INH SCH (08:41)
[2018-01-11] MEDS: PHENAZOPYRIDINE HCL PO SCH (08:41)
[2018-01-11] MEDS: [UNRECOGNIZED DRUG - OTHER] PO SCH (08:41)
[2018-01-11] MEDS: CRANBERRY PO SCH (08:41)
[2018-01-11] MEDS ORDERED: predniSONE 20 MG TAB PO SCH (09:00)
[2018-01-11 09:43] VITALS: BP 172/70; TEMP 97.7; O2SAT 93
--- NOTE | 2018-01-11 11:47 | DS ---
SUPERVISING PHYSICIAN: Riley Rosenthal MD DISCHARGE DIAGNOSIS: 1. Acute exacerbation of chronic obstructive pulmonary disease with hypoxemia as noted on arterial blood gas. 2. History of hypertension. 3. Gastroesophageal reflux disease. 4. Acute sinusitis, most likely allergy related. 5. History of irritable bowel syndrome. 6. History of osteoarthritis. 7. History of osteopenia. 8. Type 2 diabetes mellitus on oral therapy. 8. Hypothyroidism on supplementation. 10. Electrolyte imbalance that has now improved. HISTORY OF PRESENT ILLNESS: This is an 82 year-old female patient if Prabha Silveira. On the date of admission she presented to the Emergency Room having upper respiratory symptoms with a runny nose and shortness of breath since , 01/06. She has oxygen at home that she uses p.r.n. but has required it more frequently due to the increasing shortness of breath. She denied any fevers or chills and any recent exposures to family members who were ill. In the Emergency Room she satting 92% on room air but dropped to 84% with just 20 feet of ambulation. She required over 5 minutes of recovery with her oxygen saturation dropping as low as 77%, She recovered to 90% after 5 minutes and was given a DuoNeb treatment. Laboratory studies showed white count of 4,200 with no left shift. Her ABGs showed a pO2 of 66 with pCO2 of 52 satting 94% on 5 liters nasal cannula. Chemistries showed carbon dioxide was elevated at 32, her other electrolytes were within normal limits. Magnesium was low at 1.7, lactic acid 1.6. Liver functions were all within normal limits. BNP was normal at 65. Urinalysis was within normal limits except for trace of leukocyte esterase. Influenza swab A and B were both negative. Chest x-ray in the Emergency Room showed no radiographic evidence of acute cardiopulmonary disease. Given the significance of hypoxia and desaturation on room air and requiring an extended amount of time to recovery as well as breathing treatments.,the patient was admitted for exacerbation of chronic obstructive pulmonary disease with concerns for developing early community acquired pneumonia. She was given azithromycin and Rocephin as well as aggressive pulmonary hygiene including nebulizer treatments. She was also given Solu-Medrol over the next day and a half. Her CBC stabilized with the exception she did have a left shift on her differential. Her blood sugars ran between 94 and 304. Her electrolytes were basically within normal limits. She was evaluated by physical therapy and they reported that she was safe to go home with her oxygen as needed. Her vital signs had stabilized, her pulse oximetry shows 93% on room air. She has been afebrile during her stay. She did report that she had seasonal allergies and was put on Flonase and she reported that helped some with her sinus symptoms. She will be discharged home today in stable condition. DISCHARGE PLAN: The patient will be discharged home in stable condition. She is to resume her previous activity as well as her diabetic diet. She has a followup with Dr. Aguilar on 01/18/18 at 10:15 AM. She will have 4 additional days of azithromycin as well as 7 days of Cefdinir and a prednisone taper. She is to return to the hospital or followup with Dr. Aguilar for any problems or complications. DISCHARGE MEDICATIONS: 1. Aspirin. 2. Procardia. 3. Citalopram. 4. Neurontin. 5. Coreg. 6. Metformin. 7. Levothyroxine. 8. Omeprazole. 9. Azo Urinary Tract Health. 10. Cephalexin. 11. Diphenhydramine. 12. Calcium plus Vitamin D. 13. Clonidine. 14. Furosemide. 15. Hydrocodone. 16. Myrbetriq. 17. Micro-K. 18. Vitamin B12 injections. 19. Tramadol. 20. Anoro. 21. CoQ10. 22. Nystatin. 23. Cefdinir. 24. Flonase. 25. Prednisone. 26. Azithromycin. #[id number] [facility]
== END 2018-01-11 13:00 | disposition home or self-care (01) | DRG 190 ==
LOC: ER 12:02 → MS 15:07
PROVIDERS: ADMIT Nurse Practitioner Family; ATTEND Nurse Practitioner Family
DX: J44.1 Chronic obstructive pulmonary disease with (acute) exacerbation (principal); J18.9 Pneumonia, unspecified organism; I10 Essential (primary) hypertension; K21.9 Gastro-esophageal reflux disease without esophagitis; K58.9 Irritable bowel syndrome, unspecified; M19.90 Unspecified osteoarthritis, unspecified site; M85.80 Other specified disorders of bone density and structure, unspecified site; E11.9 Type 2 diabetes mellitus without complications; E03.9 Hypothyroidism, unspecified; Z99.81 Dependence on supplemental oxygen; Z88.5 Allergy status to narcotic agent; Z88.1 Allergy status to other antibiotic agents; R09.02 Hypoxemia; Z79.84 Long term (current) use of oral hypoglycemic drugs; E83.42 Hypomagnesemia; J44.0 Chronic obstructive pulmonary disease with (acute) lower respiratory infection; J01.90 Acute sinusitis, unspecified; Z79.82 Long term (current) use of aspirin

== ENCOUNTER → 2018-01-18 | Outpatient (CLI) | payer MEDICARE, OTHER | LOC: GMAM 14:56 | PROVIDERS: ATTEND Family Medicine | DX: E87.1 Hypo-osmolality and hyponatremia (principal) ==

== ENCOUNTER → 2018-06-24 | Outpatient (CLI) | payer MEDICARE, OTHER | LOC: GMAM 10:53 | PROVIDERS: ATTEND Family Medicine | DX: E53.8 Deficiency of other specified B group vitamins (principal); E03.9 Hypothyroidism, unspecified; E11.9 Type 2 diabetes mellitus without complications; E78.2 Mixed hyperlipidemia; E55.9 Vitamin D deficiency, unspecified; D50.8 Other iron deficiency anemias; I10 Essential (primary) hypertension ==

== ENCOUNTER → 2019-04-03 | Outpatient (CLI) | payer MEDICARE, OTHER | LOC: GMAM 10:50 | PROVIDERS: ATTEND Family Medicine | DX: E53.8 Deficiency of other specified B group vitamins (principal); E03.9 Hypothyroidism, unspecified; E55.9 Vitamin D deficiency, unspecified; I10 Essential (primary) hypertension; J44.9 Chronic obstructive pulmonary disease, unspecified; E11.9 Type 2 diabetes mellitus without complications ==

== ENCOUNTER 2019-11-06 14:42 | Emergency (ER) | payer MEDICARE, OTHER ==
--- NOTE | 2019-11-06 15:10 | ED.PDOC ---
History of Present Illness - General Chief Complaint: General Stated Complaint: right lower ext pain Time Seen by Provider: 11/06/19 14:45 - History of Present Illness Initial Comments: 84 yo pleasant female presents with the c/c of right leg pain x 6 weeks. denies any injury. was gradual in onset radiates front of thigh to knee as well as posterior thigh. sharp and achy in nature. also complains of bad knee pain. worse with certain positions. no numbness or tingling. Hx of osteoporosis. no issue with urine or bowel. Pain was getting worse so patient decided to come in to start the workup. patient takes gabapentin at night for this pain. also takes tramadol prn. Allergies/Adverse Reactions: Allergies Sulfamethoxazole w/Trimethoprim [From Bactrim] Allergy (Verified 11/06/19 15:08) Unknown Codeine Adverse Reaction (Verified 11/06/19 15:08) Other Causes a feeling of "separation from her body" Home Medications: Ambulatory Orders Aspirin [Aspirin EC Low Dose] 81 mg PO DAILY 05/20/16 Carvedilol [Coreg] 12.5 mg PO BID 05/20/16 Citalopram Hydrobromide [Celexa] 40 mg PO DAILY 05/20/16 Gabapentin [Neurontin] 100 mg PO BEDTIME 05/20/16 Levothyroxine Sodium [Synthroid] 112 mcg PO DAILY 05/20/16 Metformin HCl [Metformin Hydrochloride E] 1,000 mg PO BEDTIME 05/20/16 Metformin HCl [Metformin Hydrochloride E] 500 mg PO DAILY 05/20/16 Nifedipine [Procardia Xl] 60 mg PO DAILY 05/20/16 Omeprazole Magnesium 20 mg PO DAILY 05/20/16 Calcium Carbonate-Vitamin D [Calcium 500+D 500-200 mg-Unit] 1 tab PO BID 11/12/17 Cephalexin 500 mg PO BEDTIME 11/12/17 Clonidine HCl 0.1 mg PO Q2H PRN 11/12/17 Furosemide [Lasix] 20 mg PO DAILY PRN 11/12/17 HYDROcodone 5MG/APAP 325MG [[place]rich 5/325] 1 tab PO Q6HRS PRN 11/12/17 Mirabegron [Myrbetriq] 25 mg PO BEDTIME 11/12/17 Phenazopyridine HCl & Cranberr [Azo Urinary Tract Health 95 & 250-30 mg] 1 tab PO BID 11/12/17 diphenhydrAMINE HCL [Benadryl] 25 mg PO BEDTIME PRN 11/12/17 Coenzyme Q10 (Ubidecarenone) [Co Q-10] 100 mg PO DAILY 01/09/18 Cyanocobalamin Inj [Vitamin B-12 Inj] 1 ml IM MONTHLY 01/09/18 Nystatin Powder 15 gm TOP TID 01/09/18 Potassium Chloride [Micro-K] 8 meq PO DAILY PRN 01/09/18 Tramadol HCl 50 mg PO Q6H PRN 01/09/18 Umeclidinium-Vilanterol [Anoro Ellipta 62.5-25 Mcg/INH] 1 puff INH DAILY 01/09/18 Azithromycin Tab [Zithromax Tab] 250 mg PO DAILY #4 tab 01/11/18 Cefdinir 300 mg PO BID #14 capsule 01/11/18 Fluticasone Prop 0.05% Nasal [Flonase Nasal [place]] 1 spray BNAS BID spray 01/11/18 Prednisone See Taper PO DAILY #30 tab 01/11/18 Diclofenac Sodium (Topical) [Voltaren] 1 % TD TID PRN #1 tube 11/06/19 Gabapentin 100 mg PO TID PRN #30 cap 11/06/19 Review of Systems - Review of Systems Constitutional: Denies: chills, fever, malaise, weakness EENTM: Denies: blurred vision, throat pain, mouth pain Respiratory: Denies: cough, short of breath, stridor Cardiology: Denies: chest pain, palpitations, syncope Gastrointestinal/Abdominal: Denies: abdominal pain, nausea, vomiting Genitourinary: Denies: dysuria, frequency, hematuria Musculoskeletal: States: joint pain, muscle pain. Denies: back pain Skin: Denies: rash Neurological: Denies: numbness, paresthesia, seizure, tingling, tremors, weakness Endocrine: Denies: unexplained weight gain, unexplained weight loss Hematologic/Lymphatic: Denies: blood clots, easy bleeding, easy bruising Past Medical History (General) - Patient Medical History Hx Seizures: No Hx Stroke: No Hx Dementia: No Hx Asthma: Yes Hx of COPD: No Hx Cardiac Disorders: No Hx Congestive Heart Failure: No Hx Pacemaker: No Hx Hypertension: Yes Hx Thyroid Disease: Yes Hx Diabetes: No Hx Gastroesophageal Reflux: Yes Hx Renal Disease: No Hx Cancer: No Hx of HIV: No Hx Hepatitis C: No Hx MRSA: No - Vaccination History Hx Tetanus, Diphtheria Vaccination: Yes Hx Influenza Vaccination: Yes - 2017 Hx Pneumococcal Vaccination: Yes - 2018 - Social History Hx Tobacco Use: Yes - Quit 2002 Hx Chewing Tobacco Use: No Hx Alcohol Use: No Hx Substance Use: No Hx Substance Use Treatment: No Hx Depression: No Hx Physical Abuse: No Hx Emotional Abuse: No Hx Suspected Abuse: No Family Medical History - Family History Mother Family History: Unknown Living Status: Hx Family Diabetes: Yes - parents Hx Family Cancer: Yes - AML-son Physical Exam - Physical Exam General Appearance: Alert, Comfortable, No apparent distress, Well Developed, Well Groomed, Well Hydrated, Well Nourished, Other - antalgic gait, uses walker at baseline Eye Exam: bilateral normal Ears, Nose, Throat: hearing grossly normal, normal ENT inspection Neck: non-tender, full range of motion, supple, normal inspection Respiratory: chest non-tender, lungs clear, normal breath sounds, no respiratory distress, no accessory muscle use Cardiovascular/Chest: normal peripheral pulses, regular rate, rhythm, no gallop, no JVD, no murmur Peripheral Pulses: radial,right: 2+, radial,left: 2+, dorsalis pedis,right: 2+, dorsalis pedis,left: 2+, posterior tibialis,right: 2+, posterior tibialis,left: 2+ Gastrointestinal/Abdominal: normal bowel sounds, non tender, soft Back Exam: normal inspection, no CVA tenderness, no vertebral tenderness Extremity: normal range of motion, non-tender, normal capillary refill, pedal edema, other - pain over piriformis, negative straight leg test. no pain with internal or external rotation of hip. 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 CT scan of l-spine shows: Multilevel lumbar spondylosis. No acute fracture or subluxation. hip and knee xray negative for fracture does show osteoporosis and oa with spurring. due to disruption of pain I feel its both related to OA and sciatica. discussed home exercises. The data reviewed when caring for this patient included: nurse notes, prior records, etc. The history and assessments from nurses notes were reviewed and considered, and the patient's home medication list was also reviewed and considered. My assessment and the results of testing completed here in the ED were discussed with the patient/family. All questions were answered, and they express understanding of my assessment and the plan. They have been instructed to return if their symptoms worsen, and have been asked to follow up with their primary care physician to recheck today's presenting complaint. return precautions given. I have reviewed medication, benefits, alternatives and side effects. Patient decided to proceed with medication.patient was discharged home in stable condition. Cayla Dong DO #[id number] (pulse ox of 79 put in error, patient 96% on ra.). Departure - Departure Clinical Impression: Osteoarthritis Qualifiers: Osteoarthritis location: unspecified site Osteoarthritis type: unspecified Qualified Code(s): M19.90 - Unspecified osteoarthritis, unspecified site Age related osteoporosis Qualifiers: Presence of current pathological fracture: unspecified Qualified Code(s): M81.0 - Age-related osteoporosis without current pathological fracture Sciatica Qualifiers: Laterality: right Qualified Code(s): M54.31 - Sciatica, right side Time of Disposition: 16:01 Disposition: Discharge to Home or Self Care Departure Forms: ED Discharge - Pt. Copy, Patient Portal Self Enrollment Instructions: Osteoarthritis, Sciatica (DC), Sciatica Exercises Referrals: Timur Aguilar MD [Primary Care Provider] - 1-2 Days Prescriptions: Gabapentin 100 mg PO TID PRN #30 cap PRN Reason: Pain Diclofenac Sodium (Topical) [Voltaren] 1 % TD TID PRN #1 tube PRN Reason: Pain Home Medications: Ambulatory Orders Aspirin [Aspirin EC Low Dose] 81 mg PO DAILY 05/20/16 Carvedilol [Coreg] 12.5 mg PO BID 05/20/16 Citalopram Hydrobromide [Celexa] 40 mg PO DAILY 05/20/16 Gabapentin [Neurontin] 100 mg PO BEDTIME 05/20/16 Levothyroxine Sodium [Synthroid] 112 mcg PO DAILY 05/20/16 Metformin HCl [Metformin Hydrochloride E] 1,000 mg PO BEDTIME 05/20/16 Metformin HCl [Metformin Hydrochloride E] 500 mg PO DAILY 05/20/16 Nifedipine [Procardia Xl] 60 mg PO DAILY 05/20/16 Omeprazole Magnesium 20 mg PO DAILY 05/20/16 Calcium Carbonate-Vitamin D [Calcium 500+D 500-200 mg-Unit] 1 tab PO BID Cephalexin 500 mg PO BEDTIME 11/12/17 Clonidine HCl 0.1 mg PO Q2H PRN 11/12/17 Furosemide [Lasix] 20 mg PO DAILY PRN 11/12/17 HYDROcodone 5MG/APAP 325MG [Goodrich 5/325] 1 tab PO Q6HRS PRN 11/12/17 Mirabegron [Myrbetriq] 25 mg PO BEDTIME 11/12/17 Phenazopyridine HCl & Cranberr [Azo Urinary Tract Health 95 & 250-30 mg] 1 tab PO BID 11/12/17 diphenhydrAMINE HCL [Benadryl] 25 mg PO BEDTIME PRN 11/12/17 Coenzyme Q10 (Ubidecarenone) [Co Q-10] 100 mg PO DAILY 01/09/18 Cyanocobalamin Inj [Vitamin B-12 Inj] 1 ml IM MONTHLY 01/09/18 Nystatin Powder 15 gm TOP TID 01/09/18 Potassium Chloride [Micro-K] 8 meq PO DAILY PRN 01/09/18 Tramadol HCl 50 mg PO Q6H PRN 01/09/18 Umeclidinium-Vilanterol [Anoro Ellipta 62.5-25 Mcg/INH] 1 puff INH DAILY 01/09/18 Azithromycin Tab [Zithromax Tab] 250 mg PO DAILY #4 tab 01/11/18 Cefdinir 300 mg PO BID #14 capsule 01/11/18 Fluticasone Prop 0.05% Nasal [Flonase Nasal [place]] 1 spray BNAS BID spray 01/11/18 Prednisone See Taper PO DAILY #30 tab 01/11/18 Diclofenac Sodium (Topical) [Voltaren] 1 % TD TID PRN #1 tube 11/06/19 Gabapentin 100 mg PO TID PRN #30 cap 11/06/19
--- NOTE | 2019-11-06 15:55 | RAD ---
2 radiographs right hip Indication: pain Comparison: None. Impression: Mild right hip arthritis. No acute fracture identified. Evaluation for fracture is limited given the degree of osteopenia. If high clinical concern for acute fracture, correlation with MRI recommended given its greater sensitivity in the osteopenic patient. If the patient cannot tolerate MRI imaging or more urgent imaging is required, CT could be performed, however it is less sensitive in the osteopenic patient when compared to MRI. Electronically signed by: Santosh Pittman MD 11/06/2019 3:54 PM CDT
--- NOTE | 2019-11-06 15:56 | CT ---
TECHNIQUE: Axial images of the lumbar spine were obtained with multiple reconstructions provided. This exam was performed according to our departmental dose-optimization program, which includes automated exposure control, adjustment of the mA and/or kV according to patient size and/or use of iterative reconstruction technique. CLINICAL HISTORY PROVIDED: pain COMPARISON: None available. FINDINGS: Five lumbar type vertebral bodies are present. Alignment: Normal. No acute subluxation. Fracture: None present. Paraspinal Soft Tissues/ Retroperitoneum: Unremarkable. Postoperative: L4/L5 posterior construct with interbody fusion. Partial osseous bridging. No hardware complication. Degenerative: Multilevel lumbar spondylosis with disc space narrowing, marginal osteophytes and facet hypertrophy. IMPRESSION: Multilevel lumbar spondylosis. No acute fracture or subluxation. Electronically signed by: Franki Burgess MD 11/06/2019 3:54 PM CDT
--- NOTE | 2019-11-06 15:57 | RAD ---
EXAM DESCRIPTION: Knee,Right 1 or 2 Views CLINICAL HISTORY: 84 years, Female, pain COMPARISON: None TECHNIQUE: Three views of the right knee FINDINGS: Three views right knee demonstrate mild degenerative changes. Moderate osteopenia is present. No fracture or dislocation or large joint effusion noted. No soft tissue mass is evident. Mild marginal osteophyte formation at several locations present. Joint space fairly well preserved. IMPRESSION: 1. Moderate osteopenia and mild degenerative changes right knee. Electronically signed by: Timur Gil MD 11/06/2019 3:55 PM CDT
[2019-11-06 16:36] VITALS: BP 170/72; TEMP 97.3; O2SAT 95
== END 2019-11-06 16:27 | disposition home or self-care (01) ==
LOC: ER 14:42
DX: M54.31 Sciatica, right side (principal); M81.0 Age-related osteoporosis without current pathological fracture; M19.90 Unspecified osteoarthritis, unspecified site; J45.909 Unspecified asthma, uncomplicated; I10 Essential (primary) hypertension; E07.9 Disorder of thyroid, unspecified; K21.9 Gastro-esophageal reflux disease without esophagitis; Z87.891 Personal history of nicotine dependence; Z79.899 Other long term (current) drug therapy; Z79.84 Long term (current) use of oral hypoglycemic drugs; Z79.82 Long term (current) use of aspirin; Z88.2 Allergy status to sulfonamides; Z88.5 Allergy status to narcotic agent

== ENCOUNTER 2019-12-16 21:11 | Emergency (ER) | payer MEDICARE, OTHER ==
--- NOTE | 2019-12-16 22:04 | RAD ---
EXAM DESCRIPTION: Hip,Left 2 Views 12/16/2019 10:02 PM CDT CLINICAL HISTORY: 84 years, Female, pain/ fall COMPARISON: 11/06/2019 FINDINGS: Frontal view of the left hip and frogleg view of the left hip were obtained. There is mild diffuse bony osteopenia. No areas of acute bony injuries were demonstrated. No gross soft tissue abnormality is identified. There are no gross intraosseous lesions. No periosteal reaction were seen. Questionable minimal early spur formation/increase sclerosis is identified within the anterior superior aspect of the acetabulum. No definitive displaced fracture are identified, if symptoms persist, clinical correlation and/or further evaluation with CT scan and/or MRI could be of assistance. IMPRESSION: NO EVIDENCE FOR DISPLACED FRACTURE OR DISLOCATION AT THE LEFT HIP JOINT. Electronically signed by: Mario Perez MD 12/16/2019 10:03 PM CDT
--- NOTE | 2019-12-16 22:14 | RAD ---
CLINICAL HISTORY: pain COMPARISON: None. TECHNIQUE: XR LUMBAR SPINE ANTEROPOSTERIOR, LATERAL, AND OBLIQUES 12/16/2019 9:36 PM CDT FINDINGS: There is no acute fracture. Vertebral body heights are preserved. Alignment is anatomic. Posterior fusion of L4 and L5 was performed. There is severe narrowing of the L5-S1 disc. Soft tissues are unremarkable. IMPRESSION: No acute fracture or subluxation. Electronically signed by: Ar Yeung MD 12/16/2019 10:13 PM CDT
--- NOTE | 2019-12-16 22:17 | ED.PDOC ---
History of Present Illness - General Chief Complaint: Lower Extremity Injury Stated Complaint: left hip and back pain after a fall two days ago Time Seen by Provider: 12/16/19 21:13 Source: patient Additional Information: She denies hitting her head, she denies any LOC - History of Present Illness Occurred: just prior to arrival Pain Location: pelvis, back, lower extremity Method of Injury: fall, other - States that she missed her step and fell. Denies any dizziness lightheadedness confusion. Improving Factors: nothing Worsening Factors: nothing Loss of Consciousness: no loss of consciousness Associated Symptoms (Fall): denies symptoms Allergies/Adverse Reactions: Allergies Sulfamethoxazole w/Trimethoprim [From Bactrim] Allergy (Verified 11/06/19 15:08) Unknown Codeine Adverse Reaction (Verified 11/06/19 15:08) Other Causes a feeling of "separation from her body" Home Medications: Ambulatory Orders Aspirin [Aspirin EC Low Dose] 81 mg PO DAILY 05/20/16 Carvedilol [Coreg] 12.5 mg PO BID 05/20/16 Citalopram Hydrobromide [Celexa] 40 mg PO DAILY 05/20/16 Gabapentin [Neurontin] 100 mg PO BEDTIME 05/20/16 Levothyroxine Sodium [Synthroid] 112 mcg PO DAILY 05/20/16 Metformin HCl [Metformin Hydrochloride E] 500 mg PO DAILY 05/20/16 Nifedipine [Procardia Xl] 60 mg PO DAILY 05/20/16 Omeprazole Magnesium 20 mg PO DAILY 05/20/16 Calcium Carbonate-Vitamin D [Calcium 500+D 500-200 mg-Unit] 1 tab PO BID 11/12/17 Cephalexin 500 mg PO BEDTIME 11/12/17 Clonidine HCl 0.1 mg PO Q2H PRN 11/12/17 Furosemide [Lasix] 20 mg PO DAILY PRN 11/12/17 diphenhydrAMINE HCL [Benadryl] 25 mg PO BEDTIME PRN 11/12/17 Coenzyme Q10 (Ubidecarenone) [Co Q-10] 100 mg PO DAILY 01/09/18 Cyanocobalamin Inj [Vitamin B-12 Inj] 1 ml IM MONTHLY 01/09/18 Potassium Chloride [Micro-K] 8 meq PO DAILY PRN 01/09/18 Tramadol HCl 50 mg PO Q6H PRN 01/09/18 Gabapentin 100 mg PO TID PRN #30 cap 11/06/19 Budesonide (Inhalation) [Pulmicort] 1 mg IN 12/16/19 Formoterol Fumarate [Perforomist] 20 mcg IN 12/16/19 Revefenacin [Yupelri] 175 mcg IN 12/16/19 Review of Systems - Review of Systems Constitutional: Denies: chills, fever EENTM: Denies: eye pain, blurred vision, tearing Respiratory: Denies: cough, short of breath Cardiology: Denies: chest pain, palpitations, syncope Gastrointestinal/Abdominal: Denies: abdominal pain, diarrhea, nausea Genitourinary: Denies: discharge, dysuria, hematuria Musculoskeletal: States: back pain, joint pain, muscle pain. Denies: joint swelling Skin: States: change in color, other - Bruising in left foot from fall. Denies: see HPI, dryness Neurological: Denies: anxiety, depressed, headache, numbness, paresthesia, pre- existing deficit, seizure, tingling, tremors, weakness, other Endocrine: Denies: flushing, intolerance to cold, intolerance to heat, increased thirst, increased urine, unexplained weight gain, unexplained weight loss Past Medical History (General) - Patient Medical History Hx Seizures: No Hx Stroke: No Hx Dementia: No Hx Asthma: No Hx of COPD: Yes Hx Cardiac Disorders: Yes - LBBB Hx Congestive Heart Failure: No Hx Pacemaker: No Hx Hypertension: Yes Hx Thyroid Disease: Yes Hx Diabetes: Yes Hx Gastroesophageal Reflux: No Hx Renal Disease: No Hx Cancer: No Hx of HIV: No Hx Hepatitis C: No Hx MRSA: No Surgical History: Hysterectomy, other - Vaccination History Hx Tetanus, Diphtheria Vaccination: Yes Hx Influenza Vaccination: Yes Hx Pneumococcal Vaccination: Yes - Social History Hx Tobacco Use: No Hx Chewing Tobacco Use: No Hx Alcohol Use: No Hx Substance Use: No Hx Substance Use Treatment: No Hx Depression: No Feels Threatened In Home Enviroment: No Feels Threatened In a Relationship: No Hx Physical Abuse: No Hx Emotional Abuse: No Hx Suspected Abuse: No - Female History Patient is a Female of Child Bearing Age (10 -59 yrs old): No Family Medical History - Family History Mother Family History: Unknown Living Status: Hx Family Diabetes: Yes - parents Hx Family Cancer: Yes - AML-son Physical Exam - Physical Exam General Appearance: Alert, Comfortable Head Injury: no evidence of injury Eye Exam: bilateral normal ENT Exam: hearing grossly normal, no evidence of ENT injury Neck Exam: non-tender, full range of motion, normal alignment Cardiovascular/Respiratory: regular rate, rhythm, normal peripheral pulses, no JVD, normal breath sounds Gastrointestinal/Abdominal: normal bowel sounds, non tender, soft Back Exam: normal inspection, no CVA tenderness, no vertebral tenderness Extremity Exam: no evidence of injury, normal range of motion, non-tender, tenderness - Left hip, pelvis,Lumbosacral spine 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 Complains of left hip pain on physical examination the tenderness in her lower spine lumbosacral region and in her pelvis. She states that she has had pain in her lower back but is worsened since the fall 2 days ago. X-rays do not show any acute findings. Chronic findings present. - EKG/XRAY/CT XRAY: pelvis - Left hip no acute findings chronic change Xray Comments: X-ray of the lumbosacral spine no acute fracture and old spinal surgery, Departure - Departure Clinical Impression: Sprain of hip, Back pain, Fall, Bruising, Sprain, pelvic, Chronic respiratory failure with hypoxia Time of Disposition: 22:21 Disposition: Discharge to Home or Self Care Condition: Fair Departure Forms: ED Discharge - Pt. Copy, Patient Portal Self Enrollment Instructions: DI for Leg Pain, Muscle Strain, Low Back Pain in Adults, Hip Pain, Hip Pain (DC) Referrals: Timur Aguilar MD [Primary Care Provider] - 1-2 Weeks Home Medications: Ambulatory Orders Aspirin [Aspirin EC Low Dose] 81 mg PO DAILY 05/20/16 Carvedilol [Coreg] 12.5 mg PO BID 05/20/16 Citalopram Hydrobromide [Celexa] 40 mg PO DAILY 05/20/16 Gabapentin [Neurontin] 100 mg PO BEDTIME 05/20/16 Levothyroxine Sodium [Synthroid] 112 mcg PO DAILY 05/20/16 Metformin HCl [Metformin Hydrochloride E] 500 mg PO DAILY 05/20/16 Nifedipine [Procardia Xl] 60 mg PO DAILY 05/20/16 Omeprazole Magnesium 20 mg PO DAILY 05/20/16 Calcium Carbonate-Vitamin D [Calcium 500+D 500-200 mg-Unit] 1 tab PO BID 11/12/17 Cephalexin 500 mg PO BEDTIME 11/12/17 Clonidine HCl 0.1 mg PO Q2H PRN 11/12/17 Furosemide [Lasix] 20 mg PO DAILY PRN 11/12/17 diphenhydrAMINE HCL [Benadryl] 25 mg PO BEDTIME PRN 11/12/17 Coenzyme Q10 (Ubidecarenone) [Co Q-10] 100 mg PO DAILY 01/09/18 Cyanocobalamin Inj [Vitamin B-12 Inj] 1 ml IM MONTHLY 01/09/18 Potassium Chloride [Micro-K] 8 meq PO DAILY PRN 01/09/18 Tramadol HCl 50 mg PO Q6H PRN 01/09/18 Gabapentin 100 mg PO TID PRN #30 cap 11/06/19 Budesonide (Inhalation) [Pulmicort] 1 mg IN 12/16/19 Formoterol Fumarate [Perforomist] 20 mcg IN 12/16/19 Revefenacin [Yupelri] 175 mcg IN 12/16/19 Additional Instructions: Please ensure to follow-up with her primary care physician in 1 to 2 days. Return to emergency department medially if symptoms worsen or recur Tylenol codeine administered for pain
--- NOTE | 2019-12-16 22:24 | RAD ---
EXAM DESCRIPTION: Pelvis 12/16/2019 10:03 PM CDT CLINICAL HISTORY: 84 years, Female, pain/ fall COMPARISON: None. FINDINGS: 1 x-ray (frontal view) of the pelvis was obtained. No areas of acute bony injuries were demonstrated. No gross soft tissue abnormality is identified. There are no gross intraosseous lesions. No periosteal reaction were seen. The pelvic brim is intact. Visualized gas pattern is nondiagnostic. Posterior transpedicular fusion/laminectomy is suggested at L4/L5 disc level. Minimal early degenerative changes about the hips. IMPRESSION: POSTERIOR LUMBAR FUSION. NO EVIDENCE FOR DISPLACED FRACTURE OR DISLOCATION. Electronically signed by: Mario Perez MD 12/16/2019 10:23 PM CDT
[2019-12-16] MEDS ORDERED: HYDROcodone 10MG/APAP 325MG 1 EA TAB PO ONE (22:25)
[2019-12-16 22:38] VITALS: BP 142/60; TEMP 97.7; O2SAT 90
== END 2019-12-16 22:35 | disposition home or self-care (01) ==
LOC: ER 21:11
DX: S73.102A Unspecified sprain of left hip, initial encounter (principal); S90.32XA Contusion of left foot, initial encounter; M54.5 Low back pain; R10.2 Pelvic and perineal pain; J96.11 Chronic respiratory failure with hypoxia; E11.9 Type 2 diabetes mellitus without complications; I10 Essential (primary) hypertension; E07.9 Disorder of thyroid, unspecified; Z79.82 Long term (current) use of aspirin; Z79.84 Long term (current) use of oral hypoglycemic drugs; Z79.899 Other long term (current) drug therapy; Z88.2 Allergy status to sulfonamides; Z88.5 Allergy status to narcotic agent; W18.39XA Other fall on same level, initial encounter; Y92.009 Unspecified place in unspecified non-institutional (private) residence as the place of occurrence of the external cause

== ENCOUNTER → 2019-12-21 | Outpatient (CLI) | payer MEDICARE, OTHER | LOC: NC 16:12 | PROVIDERS: ATTEND Family Medicine | DX: R30.0 Dysuria (principal) ==

== ENCOUNTER 2019-12-22 12:52 | Emergency (ER) | payer MEDICARE, OTHER ==
[2019-12-22] MEDS ORDERED: predniSONE 20 MG TAB PO ONE (13:30)
[2019-12-22] MEDS ORDERED: CYCLOBENZAPRINE HCL 5 MG TAB PO ONE (13:30)
[2019-12-22] MEDS ORDERED: KETOROLAC TROMETHAMINE INJ 30 MG/ML VIAL IM ONE (13:56)
--- NOTE | 2019-12-22 14:07 | RAD ---
EXAM DESCRIPTION: Lumbar Spine 3 Views CLINICAL HISTORY: 84 years Female, fall 1 weeks ago with muscle spasm low back COMPARISON: December 16, 2019 FINDINGS: 3 views of the lumbar spine again demonstrate bilateral pedicle screw and vertical and horizontal khari fixation at L4-5. Interbody implant in the disc space is seen. No hardware failure or loosening. L4 laminectomy changes are seen. Posterior lateral bone graft is identified. Moderate posterior disc space narrowing at L3-4 seen with severe diffuse disc space narrowing and vacuum disc at L5-S1 similar to previous. Normal alignment of the lumbar spine. Moderate vascular calcifications are seen. IMPRESSION: Stable postop changes at the L4-5 level. Stable disc degenerative disease primarily at L3-4 and most significantly at L5-S1. Electronically signed by: Tim Riggins MD 12/22/2019 2:06 PM [facility]
--- NOTE | 2019-12-22 14:08 | RAD ---
EXAM DESCRIPTION: Pelvis CLINICAL HISTORY: 84 years Female, fall 1 weeks ago with muscle spasm low back COMPARISON: December 16, 2019 FINDINGS: Single view of the pelvis demonstrates previous posterior fixation of the lower lumbar spine at the L4-5 level. Generalized osteopenia with mild marginal osteophytes involving the acetabula bilaterally noted. No fracture or deformity seen. Bony pelvic ring is intact. No hip fracture or dislocation noted on this single view. No disruption of the symphysis or SI joints. IMPRESSION: Osteopenia and mild degenerative changes of the hips, otherwise negative pelvis one view. Electronically signed by: Timur Gil MD 12/22/2019 2:06 PM [facility]
--- NOTE | 2019-12-22 14:25 | ED.PDOC ---
History of Present Illness - General Chief Complaint: General Stated Complaint: Lower back pain, possible kidney stone Time Seen by Provider: 12/22/19 13:29 Source: patient Exam Limitations: no limitations - History of Present Illness Initial Comments: Patient is a 84-year-old female presenting with left lower back pain. Apparently the patient fell about a week ago and has had some progressive pain since that time. She initially had mainly hurt her left lower extremity but had been getting some aches and pains and the other side and compensation. No neurological changes. No falls since. She did have x-rays at that time. Pain is localized to the left of the L3-L4 region. There is obvious muscle spasm. No palpable deformity however. No loss of sensation. No vascular change. Pain is largely reproducible with palpation. Timing/Duration: 1 week Severity: moderate Improving Factors: immobilization Worsening Factors: movement Associated Symptoms: denies symptoms Allergies/Adverse Reactions: Allergies Sulfamethoxazole w/Trimethoprim [From Bactrim] Allergy (Verified 12/22/19 13:20) Unknown Codeine Adverse Reaction (Verified 12/22/19 13:20) Other Causes a feeling of "separation from her body" Home Medications: Ambulatory Orders Aspirin [Aspirin EC Low Dose] 81 mg PO DAILY 05/20/16 Carvedilol [Coreg] 12.5 mg PO BID 05/20/16 Citalopram Hydrobromide [Celexa] 40 mg PO DAILY 05/20/16 Gabapentin [Neurontin] 100 mg PO BEDTIME 05/20/16 Levothyroxine Sodium [Synthroid] 112 mcg PO DAILY 05/20/16 Metformin HCl [Metformin Hydrochloride E] 500 mg PO DAILY 05/20/16 Nifedipine [Procardia Xl] 60 mg PO DAILY 05/20/16 Omeprazole Magnesium 20 mg PO DAILY 05/20/16 Calcium Carbonate-Vitamin D [Calcium 500+D 500-200 mg-Unit] 1 tab PO BID 11/12/17 Cephalexin 500 mg PO BEDTIME 11/12/17 Clonidine HCl 0.1 mg PO Q2H PRN 11/12/17 Furosemide [Lasix] 20 mg PO DAILY PRN 11/12/17 diphenhydrAMINE HCL [Benadryl] 25 mg PO BEDTIME PRN 11/12/17 Coenzyme Q10 (Ubidecarenone) [Co Q-10] 100 mg PO DAILY 01/09/18 Cyanocobalamin Inj [Vitamin B-12 Inj] 1 ml IM MONTHLY 01/09/18 Potassium Chloride [Micro-K] 8 meq PO DAILY PRN 01/09/18 Tramadol HCl 50 mg PO Q6H PRN 01/09/18 Gabapentin 100 mg PO TID PRN #30 cap 11/06/19 Budesonide (Inhalation) [Pulmicort] 1 mg IN 12/16/19 Formoterol Fumarate [Perforomist] 20 mcg IN 12/16/19 Revefenacin [Yupelri] 175 mcg IN 12/16/19 Cyclobenzaprine HCl [Flexeril] 5 mg PO TID PRN #30 tab 12/22/19 predniSONE [Prednisone] 20 mg PO DAILY #5 tab 12/22/19 Review of Systems - Review of Systems Constitutional: States: no symptoms reported EENTM: States: no symptoms reported Respiratory: States: no symptoms reported Cardiology: States: no symptoms reported Gastrointestinal/Abdominal: States: no symptoms reported Genitourinary: States: no symptoms reported Musculoskeletal: States: back pain Skin: States: no symptoms reported Neurological: States: no symptoms reported Endocrine: States: no symptoms reported All other Systems: No Change from Baseline Past Medical History (General) - Patient Medical History Hx Seizures: No Hx Stroke: No Hx Dementia: No Hx Asthma: No Hx of COPD: Yes Hx Cardiac Disorders: No Hx Congestive Heart Failure: No Hx Pacemaker: No Hx Hypertension: Yes Hx Thyroid Disease: Yes Hx Diabetes: Yes Hx Gastroesophageal Reflux: No Hx Renal Disease: No Hx Cancer: No Hx of HIV: No Hx Hepatitis C: No Hx MRSA: No Surgical History: Hysterectomy - Vaccination History Hx Tetanus, Diphtheria Vaccination: Yes Hx Influenza Vaccination: Yes Hx Pneumococcal Vaccination: Yes - Social History Hx Tobacco Use: Yes Hx Chewing Tobacco Use: No Hx Alcohol Use: Yes Hx Substance Use: No Hx Substance Use Treatment: No Hx Depression: No Hx Physical Abuse: No Hx Emotional Abuse: No Hx Suspected Abuse: No - Female History Patient is a Female of Child Bearing Age (10 -59 yrs old): No Patient : No Family Medical History - Family History Mother Family History: Unknown Living Status: Hx Family Diabetes: Yes - parents Hx Family Cancer: Yes - AML-son Physical Exam - Physical Exam General Appearance: Alert, No apparent distress Eye Exam: bilateral normal Ears, Nose, Throat: hearing grossly normal, normal pharynx Neck: full range of motion, supple Respiratory: lungs clear, normal breath sounds, no respiratory distress, no accessory muscle use Cardiovascular/Chest: normal peripheral pulses, no edema, other - Regular rate Peripheral Pulses: radial,right: 2+, radial,left: 2+ Gastrointestinal/Abdominal: non tender, soft Rectal Exam: deferred Back Exam: no vertebral tenderness, CVA tenderness (L) Extremity: normal range of motion, non-tender 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 This appears to be myofascial strain related to a fall from a week ago. The patient is going to be placed on 5 days of low- dose prednisone. She does need to follow her blood sugars closely. Additionally she is going to be placed on low-dose Flexeril and she can continue to take ibuprofen or Aleve. Topical heat as well as stretching will help. ER warnings are given. X-rays are reassuring. Follow-up with primary care doctor. osmany zuleta [id number] - Results/Orders Results/Orders: X-ray of the pelvis and lumbar spine show no acute pathology. She does have chronic degenerative changes. No fracture or dislocation. Departure - Departure Clinical Impression: Acute myofascial strain of lumbar region Qualifiers: Encounter type: initial encounter Qualified Code(s): S39.012A - Strain of muscle, fascia and tendon of lower back, initial encounter Disposition: Discharge to Home or Self Care Condition: Fair Departure Forms: ED Discharge - Pt. Copy, Patient Portal Self Enrollment Diet: diabetic diet Activity: increase activity as tolerated Referrals: Timur Zuleta MD [Primary Care Provider] - 1-2 Weeks Prescriptions: Cyclobenzaprine HCl [Flexeril] 5 mg PO TID PRN #30 tab PRN Reason: Muscle Spasms predniSONE [Prednisone] 20 mg PO DAILY #5 tab Home Medications: Ambulatory Orders Aspirin [Aspirin EC Low Dose] 81 mg PO DAILY 05/20/16 Carvedilol [Coreg] 12.5 mg PO BID 05/20/16 Citalopram Hydrobromide [Celexa] 40 mg PO DAILY 05/20/16 Gabapentin [Neurontin] 100 mg PO BEDTIME 05/20/16 Levothyroxine Sodium [Synthroid] 112 mcg PO DAILY 05/20/16 Metformin HCl [Metformin Hydrochloride E] 500 mg PO DAILY 05/20/16 Nifedipine [Procardia Xl] 60 mg PO DAILY 05/20/16 Omeprazole Magnesium 20 mg PO DAILY 05/20/16 Calcium Carbonate-Vitamin D [Calcium 500+D 500-200 mg-Unit] 1 tab PO BID 11/12/17 Cephalexin 500 mg PO BEDTIME 11/12/17 Clonidine HCl 0.1 mg PO Q2H PRN 11/12/17 Furosemide [Lasix] 20 mg PO DAILY PRN 11/12/17 diphenhydrAMINE HCL [Benadryl] 25 mg PO BEDTIME PRN 11/12/17 Coenzyme Q10 (Ubidecarenone) [Co Q-10] 100 mg PO DAILY 01/09/18 Cyanocobalamin Inj [Vitamin B-12 Inj] 1 ml IM MONTHLY 01/09/18 Potassium Chloride [Micro-K] 8 meq PO DAILY PRN 01/09/18 Tramadol HCl 50 mg PO Q6H PRN 01/09/18 Gabapentin 100 mg PO TID PRN #30 cap 11/06/19 Budesonide (Inhalation) [Pulmicort] 1 mg IN 12/16/19 Formoterol Fumarate [Perforomist] 20 mcg IN 12/16/19 Revefenacin [Yupelri] 175 mcg IN 12/16/19 Cyclobenzaprine HCl [Flexeril] 5 mg PO TID PRN #30 tab 12/22/19 predniSONE [Prednisone] 20 mg PO DAILY #5 tab 12/22/19 Additional Instructions: The patient is an 84-year-old female presented emergency room secondary to left lower back pain. This appears to be myofascial strain related to a fall from a week ago. The patient is going to be placed on 5 days of low- dose prednisone. She does need to follow her blood sugars closely. Additionally she is going to be placed on low-dose Flexeril and she can continue to take ibuprofen or Aleve. Topical heat as well as stretching will help. ER warnings are given. X-rays are reassuring. Follow-up with primary care doctor.
[2019-12-22 15:32] VITALS: BP 169/85; TEMP 97.6; O2SAT 92
== END 2019-12-22 15:20 | disposition home or self-care (01) ==
LOC: ER 12:52
DX: S39.012A Strain of muscle, fascia and tendon of lower back, initial encounter (principal); M85.80 Other specified disorders of bone density and structure, unspecified site; M16.0 Bilateral primary osteoarthritis of hip; J44.9 Chronic obstructive pulmonary disease, unspecified; I10 Essential (primary) hypertension; E07.9 Disorder of thyroid, unspecified; E11.9 Type 2 diabetes mellitus without complications; W19.XXXA Unspecified fall, initial encounter; Y92.9 Unspecified place or not applicable; Z87.891 Personal history of nicotine dependence; Z79.899 Other long term (current) drug therapy; Z79.84 Long term (current) use of oral hypoglycemic drugs; Z79.82 Long term (current) use of aspirin; Z88.2 Allergy status to sulfonamides; Z88.5 Allergy status to narcotic agent
CPT/HCPCS: 72100; 72170; J1885; J7512

== ENCOUNTER → 2019-12-27 | Outpatient (CLI) | payer MEDICARE, OTHER ==
--- NOTE | 2019-12-27 22:33 | CT ---
EXAM: Pelvis INDICATION: PAIN IN LEFT HIP . COMPARISON: Single view of the pelvis 12/22/2019 TECHNIQUE: CT of the pelvis was performed without IV contrast. Multiple axial images and multiplanar reconstructions were generated. This exam was performed according to our departmental dose-optimization program, which includes automated exposure control, adjustment of the mA and/or kV according to patient size and/or use of iterative reconstruction technique. FINDINGS: Acute nondisplaced fractures of the both sacral ala. No other acute fractures are identified. No destructive osseous lesion. Osteopenia. Postoperative changes in the lumbar spine at L4-L5 with bilateral posterior khari and pedicle screw fixation constructs and laminectomies. Hardware appears intact. Interbody fusion device and bone graft material is noted at the disc space. No solid interbody fusion. Although the evaluation of immediately surrounding structures is mildly limited due to streak artifact, no definite periscrew lucencies are identified. There may be at least partial fusion of the posterior elements at L4-L5. Vertebral body heights are well-maintained. Severe degenerative disc disease at L5-S1. Moderate degenerative changes in the hips with joint space narrowing, subchondral sclerosis, minor subchondral cystic change, and osteophyte formation. The pubic symphysis is intact. Nodular contour of the visualized tip of the right hepatic lobe. Probable gallstones. Colonic diverticulosis. Hysterectomy. Atherosclerosis. IMPRESSION: 1. Acute nondisplaced fractures of both sacral ala. 2. Postoperative and degenerative changes in the visualized lower lumbar spine. 3. Moderate degenerative changes in the hips without fracture or dislocation. 4. Nodular contour of the tip of the right hepatic lobe is suggestive of hepatic cirrhosis. 5. Colonic diverticulosis. 6. Additional findings as described. Electronically signed by: Kamille Hoffman MD 12/27/2019 10:32 PM [facility]
== END ==
LOC: CT 11:02
PROVIDERS: ATTEND Family Medicine
DX: S32.10XA Unspecified fracture of sacrum, initial encounter for closed fracture (principal); M47.896 Other spondylosis, lumbar region; M16.0 Bilateral primary osteoarthritis of hip; K76.9 Liver disease, unspecified; K57.30 Diverticulosis of large intestine without perforation or abscess without bleeding; Z98.890 Other specified postprocedural states